=== PATIENT | female | born 1950 | race Caucasian/White ===

== ENCOUNTER → 2016-10-11 | Outpatient (CLI) | payer OTHER ==
[~2016-10-11] MED LIST: ALPRAZOLAM 0.50.5 M1 PO; CLONAZEPAM PO; COUMADIN 3 MG TA3 M1 PO; CYMBALTA PO; CYMBALTA60 MG PO; DILAUDID2 MG PO; ENOXAPARIN100 MG/11 SUBQ; FLEXERIL PO; MULTI-DELYN5 ML PO; NEURONTIN600 MG PO; NORCO 5-325 TA1 EACH PO; ONDANSETRON HCL4 M2 PO; OXYCODONE HCL 55 MG PO; OXYCODONE HCL20 M1 PO; OXYCODONE20 MG/1 ML PO; OXYCONTIN10 M1 PO; PRILOSEC20 MG PO; SINGULAIR 10 MG10 M1 PO; SKELAXIN 800 M800 M1 PO; UNICOMPLEX M TA1 TA1 PO
[2016-10-11 13:57] LABS: HEMATOCRIT 42.2 % (37.0-47.0); HEMOGLOBIN 13.4 gm/dL (12.0-15.0); MCH 24.5 pg (26.0-34.0); MCHC 31.8 g/dL (28.0-37.0); MCV 76.9 fL (80.0-100.0); RBC 5.48 mil/uL (4.20-5.00); RDW 18.2 % (10.5-14.5)
[2016-10-11 14:03] LABS: CALCIUM 8.8 mg/dL (8.5-10.1); CREATININE 0.8 mg/dL (0.6-1.0); POTASSIUM 3.9 mmol/L (3.5-5.1)
== END ==
LOC: CAT 12:21
PROVIDERS: Family Medicine
DX: K44.9 Diaphragmatic hernia without obstruction or gangrene (principal); R10.11 Right upper quadrant pain

== ENCOUNTER 2017-06-08 14:43 | Emergency (ER) | payer OTHER ==
[~2017-06-08] VITALS: Ht 167.6 cm; Wt 108.9 kg
[2017-06-08] MEDS ORDERED: DOXYCYCLINE 10100 MG PO (15:56)
[2017-06-08] MEDS ORDERED: TESSALON PERLE100 MG PO (15:56)
[2017-06-08] MEDS ORDERED: VENTOLIN HFA 1818 GM INH (16:01)
== END 2017-06-08 16:42 | disposition home or self-care (01) ==
LOC: ER 14:43
DX: J18.8 Other pneumonia, unspecified organism (principal); J98.01 Acute bronchospasm; J06.9 Acute upper respiratory infection, unspecified; Z90.49 Acquired absence of other specified parts of digestive tract; Z98.890 Other specified postprocedural states; Z86.14 Personal history of Methicillin resistant Staphylococcus aureus infection; Z91.041 Radiographic dye allergy status

== ENCOUNTER → 2017-09-02 | Outpatient (CLI) | payer OTHER ==
[~2017-09-02] MED LIST changes: +AZITHROMYCIN 2250 MG PO; +DOXYCYCLINE 10100 MG PO; +OXYCODONE HCL15 MG PO; +PREDNISONE 10 M10 MG PO; +PROZAC20 MG PO; +SYMBICORT160 MCG/4. INH; +TESSALON PERLE100 MG PO; +VENTOLIN HFA 1818 GM INH
== END ==
LOC: RAD 09:32
DX: J98.4 Other disorders of lung (principal); I70.90 Unspecified atherosclerosis; K44.9 Diaphragmatic hernia without obstruction or gangrene

== ENCOUNTER → 2017-09-10 | Outpatient (CLI) | payer OTHER ==
[~2017-09-10] MED LIST changes: -AZITHROMYCIN 2250 MG PO; -OXYCODONE HCL15 MG PO; -PREDNISONE 10 M10 MG PO; -PROZAC20 MG PO; -SYMBICORT160 MCG/4. INH
== END ==
LOC: ULTRA 07:41
DX: K76.0 Fatty (change of) liver, not elsewhere classified (principal)

== ENCOUNTER 2017-10-18 12:19 | Inpatient (IN) | payer OTHER ==
[~2017-10-18] VITALS: Ht 165.1 cm; Wt 108.9 kg
--- NOTE | ~2017-10-18 | EKG ---
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 : 1950 Requested By: Joby Hawk Order Number: [id number] MD: Yusuf Elias Measurements Intervals [place] Rate: 87 P: 27 SD: 143 QRS: -8 QRSD: 89 T: 22 QT: 348 QTc: 419 Interpretive Statements Sinus rhythm Probable left atrial enlargement Probable left ventricular hypertrophy Baseline wander in lead(s) V1 Compared to ECG 01/10/2015 07:49:19 No significant changes Electronically Signed On 10-19-2017 7:31:34 CDT by Yusuf Elias [email or web address] <ELECTRONICALLY SIGNED> By: Yusuf Elias MD 10/19/17 0731 1302 1302 Yusuf Elias MD /DSAHA
--- NOTE | ~2017-10-18 | 2DMMODE ---
[facility] [address] [place] [address] 2 D/M-MODE ECHOCARDIOGRAM Name: DOMENIC MORA Room #: 458-P [facility] IN M.R.#: [id number] Admission: 10/18/17 Attend Phys: Eliu Moore, Discharge: Date of : 52 Date of Service: 10/20/17 1348 Report #: [id number] THIS REPORT FOR: //name// APPROVED REPORT Study performed: 10/20/2017 12:47:40 EXAM: Comprehensive 2D, Doppler, and color-flow Echocardiogram Patient Location: Echo lab Room #: [facility] Status: routine BSA: 2.14 HR: 83 bpm BP: 111/65 mmHg Rhythm: NSR Other Information Study Quality: Adequate Indications Pneumonia, cough. 2D Dimensions RVDd: 39.24 mm LVEF(%): 48.01 (>50%) IVSd: 9.84 (7-11mm) LVOT Diam: 20.08 (18-24mm) LVDd: 49.44 mm PWd: 9.09 (7-11mm) Ascending Ao: 39.69 (22-36mm) LVDs: 37.47 (25-40mm) Aortic Root: 33.03 mm Escobar's LVEF: 48.01 % Volumes Left Atrial Volume (Systole) Single Plane 4CH: 68.31 mL Single Plane 2CH: 74.70 mL LA ESV Index: 36.00 mL/m2 Aortic Valve AoV Peak Darwin.: 1.62 m/s AO Peak Gr.: 10.44 mmHg LVOT Max P.41 mmHg LVOT Max V: 1.05 m/s MARY Vmax: 2.06 cm2 Mitral Valve E/A Ratio: 0.8 MV Decel. Time: 146.91 ms [facility] [place] [address] 2 D/M-MODE ECHOCARDIOGRAM Name: DOMENIC MORA Room #: 458-P [facility] IN .R.#: [id number] Admission: 10/18/17 Attend Phys: Eliu Moore, Discharge: Date of : 52 Date of Service: 10/20/17 1348 Report #: [id number] E Max Darwin.: 0.88 m/s MV A Darwin.: 1.07 m/s MV PHT: 42.60 ms IVRT: 79.58 ms Pulmonary Valve PV Peak Darwin.: 0.92 m/s PV Peak Gr.: 3.41 mmHg Pulmonary Vein P Vein S: 0.70 m/s P Vein A: 0.31 m/s P Vein D: 0.46 m/s P Vein A Dur.: 103.8 msec P Vein S/D Ratio: 1.52 Tricuspid Valve TR Peak Darwin.: 2.48 m/s RAP Estimate: 5.00 mmHg TR Peak Gr.: 24.52 mmHg PA Pressure: 30.00 mmHg Left Ventricle The left ventricle is normal size. There is normal LV segmental wall motion. There is normal left ventricular wall thickness. Left ventricular systolic function is normal. LVEF is 50-55%. Mild diastolic dysfunction is present (impaired relaxation pattern). Right Ventricle The right ventricle is normal size. The right ventricular systolic function is normal. Atria Left atrium is mildly dilated. Right atrium is at the upper limits of normal. Aortic Valve Aortic valve is trileaflet. No aortic regurgitation is present. There is no aortic valvular stenosis. Mitral Valve The mitral valve is normal in structure. Mild mitral regurgitation. Tricuspid Valve The tricuspid valve is normal in structure. Mild tricuspid regurgitation. Estimated PAP is 30mmHg. Pulmonic Valve [address] [address] 2 D/M-MODE ECHOCARDIOGRAM Name: DOMENIC MORA Room #: 458-P [facility] IN [facility]#: [id number] Admission: 10/18/17 Attend Phys: Eliu Moore, Discharge: Date of : 52 Date of Service: 10/20/17 1348 Report #: [id number] The pulmonary valve is normal in structure. Trace pulmonic regurgitation. Great Vessels The aortic root is normal in size. The ascending aorta is mildly dilated at 4.0cm. IVC is normal in size and collapses >50% with inspiration. Pericardium There is no pericardial effusion. <Conclusion> The left ventricle is normal size. There is normal left ventricular wall thickness. Left ventricular systolic function is normal. Mild diastolic dysfunction is present (impaired relaxation pattern). The right ventricle is normal size. Left atrium is mildly dilated. Aortic valve is trileaflet. Mild mitral regurgitation. Mild tricuspid regurgitation. Estimated PAP is 30mmHg. The ascending aorta is mildly dilated at 4.0cm. <ELECTRONICALLY SIGNED> By: Yusuf Elias MD 10/20/17 1348 1348 1348 Yusuf Elias MD /INF
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
[2017-10-18 12:53] VITALS: BP 109/76
[2017-10-18 13:32] LABS: ABSOLUTE NEUTROPHILS 9.1 thou/uL (1.4-8.2); BASOPHILS 0.3 % (0.0-2.0); EOSINOPHILS 0.2 % (0.0-3.0); HEMATOCRIT 35.7 % (37.0-47.0); HEMOGLOBIN 11.6 gm/dL (12.0-15.0); MCHC 32.6 g/dL (28.0-37.0); MCV 82.9 fL (80.0-100.0); PLATELET COUNT 265 thou/uL (150-400); POLYS 83.5 % (36.0-66.0); RBC 4.31 mil/uL (4.20-5.00); RDW 17.4 % (10.5-14.5); WBC 10.9 thou/uL (4.0-11.0)
[2017-10-18 13:39] LABS: ANION GAP 1 mmol/L (7-16); BUN 27 mg/dL (7-18); CALCIUM 9.3 mg/dL (8.5-10.1); CHLORIDE 106 mmol/L (98-107); CO2 30 mmol/L (21-32); CREATININE 0.8 mg/dL (0.6-1.0); GLUCOSE 147 mg/dL (74-106); POTASSIUM 3.9 mmol/L (3.5-5.1); SODIUM 137 mmol/L (136-145)
[2017-10-18 13:46] LABS: INR 2.7; PROTIME 27.2 Seconds (9.3-11.4)
[2017-10-18 13:48] LABS: ALBUMIN 2.8 g/dL (3.4-5.0); SGOT 20 U/L (15-37); SGPT 18 U/L (30-65); TOTAL PROTEIN 7.1 g/dL (6.4-8.2); TROPONIN-I < 0.04 ng/mL (<0.06)
[2017-10-18 14:00] VITALS: BP 109/76
[2017-10-18 14:22] VITALS: BP 133/82
[2017-10-18 14:30] VITALS: BP 118/71
[2017-10-18] MEDS ORDERED: OXYCODONE HCL15 MG PO (15:26)
[2017-10-18 19:36] VITALS: BP 135/68
[2017-10-19 00:45] VITALS: BP 116/78
[2017-10-19 04:45] VITALS: BP 135/82
[2017-10-19 05:44] LABS: ABSOLUTE NEUTROPHILS 10.2 thou/uL (1.4-8.2); BASOPHILS 0.1 % (0.0-2.0); HEMATOCRIT 34.3 % (37.0-47.0); HEMOGLOBIN 11.1 gm/dL (12.0-15.0); LYMPHOCYTES 6.8 % (24.0-44.0); MCH 26.9 pg (26.0-34.0); MCHC 32.4 g/dL (28.0-37.0); MCV 82.9 fL (80.0-100.0); MONOCYTES 3.6 % (1.0-8.0); PLATELET COUNT 276 thou/uL (150-400); POLYS 89.5 % (36.0-66.0); RBC 4.14 mil/uL (4.20-5.00); RDW 17.5 % (10.5-14.5); WBC 11.4 thou/uL (4.0-11.0)
[2017-10-19 06:04] LABS: CALCIUM 9.3 mg/dL (8.5-10.1); CREATININE 0.8 mg/dL (0.6-1.0); MAGNESIUM 2.2 mg/dL (1.8-2.4); POTASSIUM 4.2 mmol/L (3.5-5.1)
[2017-10-19 08:00] VITALS: BP 132/63
[2017-10-19 12:12] LABS: INR 2.8; PROTIME 28.5 Seconds (9.3-11.4)
[2017-10-19 16:00] VITALS: BP 116/63
[2017-10-19 20:47] VITALS: BP 115/63
[2017-10-19] MEDS ORDERED: PROZAC20 MG PO (22:15)
[2017-10-20 04:38] VITALS: BP 137/67
[2017-10-20 08:19] VITALS: BP 111/65
[2017-10-20 16:20] VITALS: BP 132/80
[2017-10-20 20:00] VITALS: BP 124/74
[2017-10-21 04:19] VITALS: BP 149/84
[2017-10-21 08:21] VITALS: BP 134/79
[2017-10-21 16:18] VITALS: BP 97/67
[2017-10-21 21:05] VITALS: BP 114/61
[2017-10-22 07:20] VITALS: BP 121/71
[2017-10-22 09:17] LABS: PROTIME 115.3 Seconds (9.3-11.4)
[2017-10-22 09:23] LABS: INR 11.8
[2017-10-22 20:00] VITALS: BP 106/64
[2017-10-23 07:15] VITALS: BP 116/71
[2017-10-23 10:01] LABS: INR 1.3
[2017-10-23 14:29] LABS: HEMATOCRIT 34.2 % (37.0-47.0); MCH 26.8 pg (26.0-34.0); MCHC 32.3 g/dL (28.0-37.0); MCV 82.9 fL (80.0-100.0); RBC 4.12 mil/uL (4.20-5.00); RDW 17.6 % (10.5-14.5); WBC 10.5 thou/uL (4.0-11.0)
[2017-10-23 14:37] LABS: CALCIUM 8.4 mg/dL (8.5-10.1); CREATININE 0.8 mg/dL (0.6-1.0); POTASSIUM 4.3 mmol/L (3.5-5.1)
[2017-10-23 20:04] VITALS: BP 122/71
[2017-10-24 07:30] VITALS: BP 128/78
[2017-10-24 08:47] LABS: CALCIUM 8.6 mg/dL (8.5-10.1); CREATININE 0.6 mg/dL (0.6-1.0); POTASSIUM 4.9 mmol/L (3.5-5.1)
[2017-10-24 08:52] LABS: INR 1.5
[2017-10-24 19:35] VITALS: BP 96/47
[2017-10-24 22:30] VITALS: BP 94/54
[2017-10-25 08:00] VITALS: BP 111/66
[2017-10-25] MEDS ORDERED: PREDNISONE 10 M10 MG PO (11:32)
[2017-10-25] MEDS ORDERED: AZITHROMYCIN 2250 MG PO (11:33)
[2017-10-25] MEDS ORDERED: SYMBICORT160 MCG/4. INH (11:35)
[2017-10-25] MEDS ORDERED: VENTOLIN HFA 1818 GM INH (11:35)
[2017-10-25 19:46] VITALS: BP 108/62
[2017-10-26 07:22] LABS: ABSOLUTE NEUTROPHILS 7.5 thou/uL (1.4-8.2); BASOPHILS 0.5 % (0.0-2.0); HEMATOCRIT 32.3 % (37.0-47.0); HEMOGLOBIN 10.4 gm/dL (12.0-15.0); MCH 26.3 pg (26.0-34.0); MCHC 32.1 g/dL (28.0-37.0); MONOCYTES 6.6 % (1.0-8.0); POLYS 69.9 % (36.0-66.0); RBC 3.94 mil/uL (4.20-5.00); RDW 17.3 % (10.5-14.5); WBC 10.7 thou/uL (4.0-11.0)
[2017-10-26 07:25] LABS: PLATELET COUNT 367 thou/uL (150-400)
[2017-10-26 07:32] LABS: CALCIUM 8.7 mg/dL (8.5-10.1); CREATININE 0.9 mg/dL (0.6-1.0); POTASSIUM 4.1 mmol/L (3.5-5.1)
[2017-10-26 12:25] VITALS: BP 106/59
[2017-10-26 20:00] VITALS: BP 106/64
[2017-10-27 07:30] VITALS: BP 130/81
[2017-10-27 07:32] LABS: ABSOLUTE NEUTROPHILS 7.6 thou/uL (1.4-8.2); EOSINOPHILS 2.3 % (0.0-3.0); HEMATOCRIT 32.2 % (37.0-47.0); HEMOGLOBIN 10.3 gm/dL (12.0-15.0); LYMPHOCYTES 19.5 % (24.0-44.0); MCH 26.3 pg (26.0-34.0); MCHC 31.9 g/dL (28.0-37.0); MCV 82.5 fL (80.0-100.0); MONOCYTES 7.8 % (1.0-8.0); PLATELET COUNT 355 thou/uL (150-400); POLYS 69.4 % (36.0-66.0); RDW 17.7 % (10.5-14.5)
[2017-10-27 07:46] LABS: PROTIME 24.9 Seconds (9.3-11.4)
[2017-10-27 07:47] LABS: INR 2.5
[2017-10-27 07:50] LABS: CALCIUM 8.7 mg/dL (8.5-10.1); CREATININE 0.9 mg/dL (0.6-1.0)
[2017-10-27 09:58] VITALS: BP 130/81
[2017-10-27 13:44] VITALS: BP 130/81
[2017-10-27 18:06] VITALS: BP 130/81
== END 2017-10-27 18:46 | disposition home health service (06) | DRG 177 ==
LOC: ER 12:19 → 4W 13:46 → EROBS 13:46 → 4W 14:23 → SICU 10-21 20:40
PROVIDERS: Emergency Medicine; Family Medicine; Internal Medicine
DX: J15.6 Pneumonia due to other Gram-negative bacteria (principal); J96.00 Acute respiratory failure, unspecified whether with hypoxia or hypercapnia; G89.29 Other chronic pain; R73.9 Hyperglycemia, unspecified; J45.909 Unspecified asthma, uncomplicated; M54.2 Cervicalgia; K21.9 Gastro-esophageal reflux disease without esophagitis; T38.0X5A Adverse effect of glucocorticoids and synthetic analogues, initial encounter; Y92.89 Other specified places as the place of occurrence of the external cause; Z90.49 Acquired absence of other specified parts of digestive tract; Z94.7 Corneal transplant status; Z86.711 Personal history of pulmonary embolism; Z87.81 Personal history of (healed) traumatic fracture; Z87.828 Personal history of other (healed) physical injury and trauma; Z79.01 Long term (current) use of anticoagulants; Z79.899 Other long term (current) drug therapy; Z91.041 Radiographic dye allergy status
CPT/HCPCS: 10045; 15002

== ENCOUNTER 2018-06-06 11:46 | Inpatient (IN) | payer OTHER ==
[~2018-06-06] VITALS: Ht 165.1 cm; Wt 108.0 kg
[~2018-06-06 11:46] MED LIST changes: +AZITHROMYCIN 2250 MG PO; +OXYCODONE HCL15 MG PO; +PREDNISONE 10 M10 MG PO; +PROZAC20 MG PO; +SYMBICORT160 MCG/4. INH
[2018-06-06 12:10] VITALS: BP 106/64
[2018-06-06 13:39] LABS: HEMATOCRIT 40.1 % (37.0-47.0); HEMOGLOBIN 12.5 gm/dL (12.0-15.0); MCH 25.2 pg (26.0-34.0); MCHC 31.2 g/dL (28.0-37.0); MCV 80.8 fL (80.0-100.0); PLATELET COUNT 293 thou/uL (150-400); RBC 4.96 mil/uL (4.20-5.00); WBC 20.5 thou/uL (4.0-11.0)
[2018-06-06 13:43] LABS: ANION GAP 12 mmol/L (7-16); BUN 46 mg/dL (7-18); CHLORIDE 102 mmol/L (98-107); CO2 25 mmol/L (21-32); CREATININE 2.9 mg/dL (0.6-1.0); GLUCOSE 162 mg/dL (74-106); POTASSIUM 4.2 mmol/L (3.5-5.1); SODIUM 139 mmol/L (136-145)
[2018-06-06 13:51] LABS: ALBUMIN 3.5 g/dL (3.4-5.0); SGOT 170 U/L (15-37); SGPT 59 U/L (30-65); TOTAL BILIRUBIN 0.6 mg/dL (<0.1-1.0); TOTAL PROTEIN 8.3 g/dL (6.4-8.2); TROPONIN-I <0.06 ng/mL (<0.06)
[2018-06-06 14:08] LABS: ABSOLUTE NEUTROPHILS 18.7 thou/uL (1.4-8.2); ANISOCYTOSIS 1+; POLYCHROMASIA OCCASIONAL
[2018-06-06 15:19] VITALS: BP 119/70
[2018-06-06 16:37] VITALS: BP 130/86
[2018-06-06] MEDS ORDERED: CLONAZEPAM 1 MG1 M1 PO (16:43)
[2018-06-06] MEDS ORDERED: BACLOFEN 10MG T10 MG PO (16:47)
[2018-06-06] MEDS ORDERED: BUSPIRONE HCL10 MG PO (16:59)
[2018-06-06 17:42] VITALS: BP 95/77
[2018-06-06 18:16] VITALS: BP 107/67
[2018-06-06 19:32] VITALS: BP 107/61
[2018-06-07 07:48] VITALS: BP 124/64
[2018-06-07 10:09] LABS: MCH 25.3 pg (26.0-34.0); MCHC 31.5 g/dL (28.0-37.0); MCV 80.5 fL (80.0-100.0); RBC 4.35 mil/uL (4.20-5.00); WBC 15.9 thou/uL (4.0-11.0)
[2018-06-07 10:21] LABS: INR 3.6
[2018-06-07 10:22] LABS: ALBUMIN 2.9 g/dL (3.4-5.0); CALCIUM 8.6 mg/dL (8.5-10.1); POTASSIUM 4.1 mmol/L (3.5-5.1); TOTAL BILIRUBIN 0.9 mg/dL (<0.1-1.0); TOTAL PROTEIN 7.4 g/dL (6.4-8.2)
[2018-06-07 10:26] LABS: CREATININE 1.2 mg/dL (0.6-1.0)
[2018-06-07 15:53] VITALS: BP 122/57
[2018-06-07 19:09] VITALS: BP 120/67
[2018-06-08 04:00] VITALS: BP 131/79
[2018-06-08 05:39] LABS: INR 2.9; PROTIME 29.6 Seconds (9.3-11.4)
[2018-06-08 07:14] LABS: HEMOGLOBIN 9.7 gm/dL (12.0-15.0); MCH 25.3 pg (26.0-34.0); MCHC 31.5 g/dL (28.0-37.0); MCV 80.3 fL (80.0-100.0); RBC 3.86 mil/uL (4.20-5.00); RDW 17.9 % (10.5-14.5); WBC 11.8 thou/uL (4.0-11.0)
[2018-06-08 07:25] VITALS: BP 120/75
[2018-06-08 07:25] LABS: ALBUMIN 2.5 g/dL (3.4-5.0); CALCIUM 8.6 mg/dL (8.5-10.1); CREATININE 0.8 mg/dL (0.6-1.0); POTASSIUM 4.5 mmol/L (3.5-5.1); TOTAL BILIRUBIN 0.8 mg/dL (<0.1-1.0); TOTAL PROTEIN 6.8 g/dL (6.4-8.2)
--- NOTE | 2018-06-08 11:05 | EKG ---
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[place] : 1950 Requested By: Araceli Gillis Order Number: [id number] MD: Ruiz Gee Measurements Intervals [place] Rate: 100 P: 43 CT: 156 QRS: -18 QRSD: 82 T: -1 QT: 346 QTc: 447 Interpretive Statements Sinus tachycardia Left atrial enlargement Borderline left axis deviation Borderline repolarization abnormality Compared to ECG 10/18/2017 13:02:02 Sinus rhythm no longer present Electronically Signed On 06-08-2018 11:05:32 CONVEYOR FEEDER OFFBEARER by Ruiz Gee [email or web address] <ELECTRONICALLY SIGNED> By: Ruiz Gee MD 06/08/18 1105 11 11 Ruiz Gee MD /EPI
[2018-06-08 11:52] VITALS: BP 101/58
[2018-06-08 20:21] VITALS: BP 113/65
[2018-06-09 03:19] VITALS: BP 128/84
[2018-06-09 08:49] VITALS: BP 115/70
[2018-06-09 10:16] LABS: INR 2.2
[2018-06-09 16:32] VITALS: BP 119/66
[2018-06-09 19:09] VITALS: BP 120/65
[2018-06-10 03:44] VITALS: BP 139/80
[2018-06-10 08:03] VITALS: BP 113/63
[2018-06-10 20:26] VITALS: BP 123/53
[2018-06-11 05:28] VITALS: BP 124/85
[2018-06-11 08:49] VITALS: BP 141/83
[2018-06-11 09:32] LABS: HEMATOCRIT 31.4 % (37.0-47.0); HEMOGLOBIN 10.3 gm/dL (12.0-15.0); MCH 26.5 pg (26.0-34.0); MCHC 32.7 g/dL (28.0-37.0); MCV 81.1 fL (80.0-100.0); RBC 3.88 mil/uL (4.20-5.00); WBC 7.1 thou/uL (4.0-11.0)
[2018-06-11 09:46] LABS: ALBUMIN 2.6 g/dL (3.4-5.0); CALCIUM 8.8 mg/dL (8.5-10.1); CREATININE 0.8 mg/dL (0.6-1.0); POTASSIUM 3.6 mmol/L (3.5-5.1); TOTAL BILIRUBIN 0.4 mg/dL (<0.1-1.0)
[2018-06-11 17:15] VITALS: BP 137/76
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
[2018-06-11 19:50] VITALS: BP 120/75
[2018-06-12 04:20] VITALS: BP 120/72
[2018-06-12 07:30] VITALS: BP 134/87
[2018-06-12 11:11] LABS: ANA INTERPRETATION Negative (Negative)
[2018-06-12 21:39] VITALS: BP 132/67
[2018-06-13 04:37] LABS: INR 2.2; PROTIME 22.7 Seconds (9.3-11.4)
[2018-06-13 05:04] VITALS: BP 127/77
[2018-06-13 08:09] VITALS: BP 109/43
[2018-06-13 08:43] VITALS: BP 124/74
[2018-06-13 10:45] LABS: HEMATOCRIT 31.5 % (37.0-47.0); HEMOGLOBIN 9.7 gm/dL (12.0-15.0); MCH 24.8 pg (26.0-34.0); MCHC 30.8 g/dL (28.0-37.0); MCV 80.5 fL (80.0-100.0); RBC 3.91 mil/uL (4.20-5.00); RDW 18.1 % (10.5-14.5); WBC 7.7 thou/uL (4.0-11.0)
[2018-06-13 11:09] LABS: ALBUMIN 2.5 g/dL (3.4-5.0); CALCIUM 8.8 mg/dL (8.5-10.1); CREATININE 0.9 mg/dL (0.6-1.0); POTASSIUM 3.5 mmol/L (3.5-5.1); TOTAL BILIRUBIN 0.4 mg/dL (<0.1-1.0); TOTAL PROTEIN 7.1 g/dL (6.4-8.2)
[2018-06-13 16:13] VITALS: BP 115/62
[2018-06-14 02:49] VITALS: BP 124/78
[2018-06-14 07:35] VITALS: BP 133/78
[2018-06-14 15:04] VITALS: BP 118/65
[2018-06-14 19:24] VITALS: BP 126/61
[2018-06-15 05:16] VITALS: BP 126/72
[2018-06-15 07:47] VITALS: BP 117/64
[2018-06-15] MEDS ORDERED: FIRVANQ50 MG/1 ML PO (07:56)
[2018-06-15] MEDS ORDERED: PREDNISONE 10 M10 MG PO (07:58)
[2018-06-15] MEDS ORDERED: AUGMENTIN 875-1 EACH PO (07:58)
[2018-06-15] MEDS ORDERED: ROBITUSSIN100 MG/53 PO (08:00)
[2018-06-15 08:05] VITALS: BP 117/64
== END 2018-06-15 09:57 | disposition home or self-care (01) | DRG 871 ==
LOC: ER 11:46 → 4W 15:01 → EROBS 15:01 → 4W 16:45 → ENTRNSPT 06-15 09:54 → 4W 06-15 09:57 → CMPTRNSPT 06-15 10:01
PROVIDERS: Internal Medicine Pulmonary Disease; Student in an Organized Health Care Education/Training Program; ADMIT Family Medicine
DX: A41.9 Sepsis, unspecified organism (principal); J18.1 Lobar pneumonia, unspecified organism; N17.9 Acute kidney failure, unspecified; A04.72 Enterocolitis due to Clostridium difficile, not specified as recurrent; J44.0 Chronic obstructive pulmonary disease with (acute) lower respiratory infection; F32.9 Major depressive disorder, single episode, unspecified; K44.9 Diaphragmatic hernia without obstruction or gangrene; M54.2 Cervicalgia; G89.4 Chronic pain syndrome; D63.8 Anemia in other chronic diseases classified elsewhere; K21.9 Gastro-esophageal reflux disease without esophagitis; Z87.01 Personal history of pneumonia (recurrent); Z86.711 Personal history of pulmonary embolism; Z90.49 Acquired absence of other specified parts of digestive tract; Z94.7 Corneal transplant status; Z79.899 Other long term (current) drug therapy; Z91.041 Radiographic dye allergy status
CPT/HCPCS: 10045

== ENCOUNTER → 2018-07-03 | Outpatient (CLI) | payer OTHER ==
[~2018-07-03] MED LIST changes: +AUGMENTIN 875-1 EACH PO; +BACLOFEN 10MG T10 MG PO; +BUSPIRONE HCL10 MG PO; +CLONAZEPAM 1 MG1 M1 PO; +FIRVANQ50 MG/1 ML PO; +ROBITUSSIN100 MG/53 PO
== END ==
LOC: RAD 09:46
DX: J18.9 Pneumonia, unspecified organism (principal); K44.9 Diaphragmatic hernia without obstruction or gangrene

== ENCOUNTER 2018-07-29 19:03 | Inpatient (IN) | payer OTHER ==
[~2018-07-29] VITALS: Ht 165.1 cm; Wt 115.7 kg
[2018-07-29 19:08] VITALS: BP 104/65
[2018-07-29 19:56] LABS: ABSOLUTE NEUTROPHILS 14.9 thou/uL (1.4-8.2); BASOPHILS 0.4 % (0.0-2.0); EOSINOPHILS 0.1 % (0.0-3.0); HEMATOCRIT 33.3 % (37.0-47.0); HEMOGLOBIN 10.6 gm/dL (12.0-15.0); LYMPHOCYTES 4.4 % (24.0-44.0); MCH 23.9 pg (26.0-34.0); MCHC 31.7 g/dL (28.0-37.0); MCV 75.4 fL (80.0-100.0); MONOCYTES 4.5 % (1.0-8.0); PLATELET COUNT 478 thou/uL (150-400); POLYS 90.6 % (36.0-66.0); RBC 4.42 mil/uL (4.20-5.00); RDW 17.7 % (10.5-14.5); WBC 16.5 thou/uL (4.0-11.0)
[2018-07-29 19:58] LABS: ANION GAP 15 mmol/L (7-16); BUN 48 mg/dL (7-18); CALCIUM 9.5 mg/dL (8.5-10.1); CHLORIDE 103 mmol/L (98-107); CO2 18 mmol/L (21-32); CREATININE 2.4 mg/dL (0.6-1.0); GLUCOSE 169 mg/dL (74-106); SODIUM 136 mmol/L (136-145)
[2018-07-29 20:08] LABS: ALBUMIN 3.8 g/dL (3.4-5.0); SGOT 41 U/L (15-37); SGPT 27 U/L (30-65); TOTAL BILIRUBIN 0.5 mg/dL (<0.1-1.0); TOTAL PROTEIN 8.5 g/dL (6.4-8.2); TROPONIN-I <0.06 ng/mL (<0.06)
[2018-07-29 20:25] LABS: BE(vivo) -6.8 mmol/L (-2 to +3); HCO3 19.3 mmol/L (22.0-26.0); PCO2 40.6 mmHg (35.0-45.0); PO2 81.6 mmHg (80.0-100.0); sO2 94.9 % (92.0-98.0)
[2018-07-29 20:26] LABS: pH 7.294 (7.360-7.450)
[2018-07-29 21:25] VITALS: BP 141/79
[2018-07-29 22:28] VITALS: BP 103/88
[2018-07-30 04:41] VITALS: BP 113/69
--- NOTE | 2018-07-30 05:55 | NUR ---
ASSUME CARE 2200. PT/VITALS STABLE. INTERMITTENT CHRONIC NECK PAIN. PT UP AD NGA TO BATHROOM. ASSESSMWENT CHARTED. PROGRESSING WITH POC. DR LAZCANO TO SEE PT TO AND WILL FOLLOW WITH POC PER MD. WILL CONTINUE TO MONITOR.
[2018-07-30 07:50] VITALS: BP 97/59
[2018-07-30 09:30] VITALS: BP 112/42
[2018-07-30 12:00] VITALS: BP 133/43
[2018-07-30] MEDS ORDERED: CLOTRIMAZOLE 1%15 G1 TOP (12:47)
[2018-07-30 15:50] VITALS: BP 115/62
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
[2018-07-30 19:32] VITALS: BP 114/69
[2018-07-31 04:48] VITALS: BP 114/71
[2018-07-31 05:53] LABS: ABSOLUTE NEUTROPHILS 7.6 thou/uL (1.4-8.2); BASOPHILS 0.7 % (0.0-2.0); EOSINOPHILS 3.8 % (0.0-3.0); HEMATOCRIT 30.4 % (37.0-47.0); HEMOGLOBIN 9.3 gm/dL (12.0-15.0); LYMPHOCYTES 12.3 % (24.0-44.0); MCH 23.4 pg (26.0-34.0); MCHC 30.6 g/dL (28.0-37.0); MCV 76.4 fL (80.0-100.0); POLYS 73.2 % (36.0-66.0); RBC 3.98 mil/uL (4.20-5.00); RDW 17.9 % (10.5-14.5); WBC 10.4 thou/uL (4.0-11.0)
[2018-07-31 06:03] LABS: PLATELET COUNT 364 thou/uL (150-400)
[2018-07-31 06:05] LABS: CALCIUM 8.7 mg/dL (8.5-10.1); POTASSIUM 4.1 mmol/L (3.5-5.1)
[2018-07-31 06:07] LABS: CREATININE 0.9 mg/dL (0.6-1.0)
--- NOTE | 2018-07-31 06:57 | NUR ---
ASSUMED CARE OF PATIENT AROUND 1900. PATIENT C/O PAIN, OXYCODONE ADMINISTERED PER AUG. PATIENT NPO AT MIDNIGHT, 0600 MEDICATIONS GIVEN TO PATIETN AROUND 0400 TO LIMIT N/V BEFORE ESPHOGRAM TODAY. PATIENT ABLE TO SLEEP MOST OF NIGHT. NO QUESTIONS AT THIS TIME. PROGRESSING TOWARD GOALS, WILL CONTINUE TO MONITOR.
[2018-07-31 07:35] VITALS: BP 126/77
[2018-07-31 11:40] VITALS: BP 128/62
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
--- NOTE | 2018-07-31 15:20 | NUR ---
PT ALERT AND ORIENTED TIMES THREE WITH PERIODS OF CONFUSION. VSS, 94%RA, SR ON TELE, IVF INFUSING PER ORDER. C/O LEFT SHOULDER PAIN HEATING PAD AND PRN PAIN MEDICATIONS GIVEN WITH SOME RELEIF. PT TOLERATES MEDS AND MEALS. PT UP TO RESTROOM WITH STANDBY ASSIST. PT SLOWLY PROGRESSING TOWARDS POC GOALS.
[2018-07-31 16:15] VITALS: BP 133/82
[2018-07-31 19:26] VITALS: BP 127/69
[2018-08-01 03:52] VITALS: BP 108/48
[2018-08-01 07:35] VITALS: BP 112/42
--- NOTE | 2018-08-01 07:58 | NUR ---
ASSUME CARE 1900. PT/VITALS STABLE. INTERMITTENT NECK PAIN. TOLERATES ACTIVITY WELL. UP AD NGA. MILD EPISODES OF CONDUSION NOTED LESA AFTER WAKING FROM SLEEP. PT EASILY REORIENTS SELF. PROGRESSING WELL WITH POC. PLAN IS TO CONTINUE WITH ABX AND BREATHING TREATMENTS AND POSSIBLE DISCHARGE WITHIN A FEW DAYS
[2018-08-01] MEDS ORDERED: FLAGYL500 M1 PO (08:51)
[2018-08-01 11:30] VITALS: BP 121/77
[2018-08-01 11:45] VITALS: BP 112/42
[2018-08-04 02:10] LABS: ADENOVIRUS Negative (Negative); INFLUENZA A Negative (Negative); INFLUENZA B Negative (Negative); METAPNEUMOVIRUS Negative (Negative); PARAINFLUENZA 1 Negative (Negative); PARAINFLUENZA 2 Negative (Negative); PARAINFLUENZA 3 Negative (Negative); RHINOVIRUS Negative (Negative); RSV A Negative (Negative); RSV B Negative (Negative)
== END 2018-08-01 14:44 | disposition home or self-care (01) | DRG 177 ==
LOC: ER 19:03 → 2N 20:29 → EROBS 20:29 → 2N 22:09
PROVIDERS: Emergency Medicine; Physician Assistant; Specialist; ADMIT Family Medicine
DX: J69.0 Pneumonitis due to inhalation of food and vomit (principal); J96.01 Acute respiratory failure with hypoxia; N17.9 Acute kidney failure, unspecified; A04.72 Enterocolitis due to Clostridium difficile, not specified as recurrent; K21.9 Gastro-esophageal reflux disease without esophagitis; M54.2 Cervicalgia; D64.9 Anemia, unspecified; K44.9 Diaphragmatic hernia without obstruction or gangrene; G89.4 Chronic pain syndrome; Z94.7 Corneal transplant status; Z90.49 Acquired absence of other specified parts of digestive tract; Z91.041 Radiographic dye allergy status; Z87.81 Personal history of (healed) traumatic fracture; Z86.711 Personal history of pulmonary embolism
CPT/HCPCS: 10081

== ENCOUNTER → 2018-08-21 | Outpatient (CLI) | payer OTHER ==
[~2018-08-21] MED LIST changes: +CLOTRIMAZOLE 1%15 G1 TOP; +FLAGYL500 M1 PO
== END ==
LOC: CAT 13:33
DX: I67.82 Cerebral ischemia (principal); G31.9 Degenerative disease of nervous system, unspecified; I70.90 Unspecified atherosclerosis; H57.02 Anisocoria

== ENCOUNTER → 2018-10-15 | Outpatient (CLI) | payer OTHER | LOC: RAD 09:20 | DX: J98.4 Other disorders of lung (principal) ==

== ENCOUNTER 2018-10-23 07:24 | Emergency (ER) | payer OTHER ==
[~2018-10-23] VITALS: Ht 165.1 cm; Wt 106.6 kg
[2018-10-23 09:05] LABS: HEMATOCRIT 30.5 % (37.0-47.0); HEMOGLOBIN 9.4 gm/dL (12.0-15.0); MCH 22.3 pg (26.0-34.0); MCHC 30.9 g/dL (28.0-37.0); MCV 72.2 fL (80.0-100.0); RBC 4.22 mil/uL (4.20-5.00); RDW 20.6 % (10.5-14.5); WBC 11.3 thou/uL (4.0-11.0)
[2018-10-23 09:14] LABS: INR 3.5; PROTIME 36.5 Seconds (9.3-11.4)
[2018-10-23 09:16] LABS: ANION GAP 5 mmol/L (7-16); BUN 20 mg/dL (7-18); CALCIUM 9.2 mg/dL (8.5-10.1); CHLORIDE 106 mmol/L (98-107); CO2 27 mmol/L (21-32); CREATININE 0.9 mg/dL (0.6-1.0); GLUCOSE 106 mg/dL (74-106); SODIUM 138 mmol/L (136-145)
[2018-10-23 09:21] LABS: POTASSIUM 5.2 mmol/L (3.5-5.1)
[2018-10-23 09:25] LABS: TROPONIN-I <0.06 ng/mL (<0.06)
[2018-10-23] MEDS ORDERED: CEFDINIR300 MG PO (10:00)
[2018-10-23] MEDS ORDERED: PREDNISONE50 MG PO (10:00)
[2018-10-23 10:58] VITALS: BP 131/62
--- NOTE | 2018-10-23 12:17 | EKG ---
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: [facility] : 1950 Requested By: Kenny Evans Order Number: [id number] MD: Octavio Chavez Measurements Intervals [place] Rate: 87 P: 45 [place]: 159 QRS: -5 QRSD: 83 T: 3 QT: 372 QTc: 448 Interpretive Statements Sinus rhythm Nonspecific ST segment abnormality Compared to ECG 06/06/2018 12:12:46 Sinus tachycardia no longer present Electronically Signed On 10-23-2018 12:17:14 CDT by Octavio Chavez [email or web address] ��������������������������������������������� <ELECTRONICALLY SIGNED> ���������������������������������������� By: Octavio Chavez MD, [facility] ��������������������������������������������� 10/23/18 1217 0833 2 Octavio Chavez MD, FACC /EPI
== END 2018-10-23 18:43 | disposition home or self-care (01) ==
LOC: ER 07:24
PROVIDERS: Emergency Medicine
DX: J18.8 Other pneumonia, unspecified organism (principal); L03.115 Cellulitis of right lower limb; K21.9 Gastro-esophageal reflux disease without esophagitis; G89.29 Other chronic pain; M54.2 Cervicalgia; Z86.14 Personal history of Methicillin resistant Staphylococcus aureus infection; Z90.49 Acquired absence of other specified parts of digestive tract; Z87.01 Personal history of pneumonia (recurrent); Z91.041 Radiographic dye allergy status

== ENCOUNTER 2019-02-25 08:32 | Inpatient (IN) | payer OTHER ==
[~2019-02-25] VITALS: Ht 165.1 cm; Wt 114.3 kg
[2019-02-25 08:32] VITALS: BP 105/69
[~2019-02-25 08:32] MED LIST changes: +CEFDINIR300 MG PO; +PREDNISONE50 MG PO; +PRILOSEC OTC20 MG PO; -PRILOSEC20 MG PO
--- NOTE | 2019-02-25 09:10 | EKG ---
[place] [address] [facility] [place] [address] ELECTROCARDIOGRAM REPORT Name: DOMENIC MORA Room #: [facility]#: [id number] ������������������ Admission: ������������������ Attend Phys: Discharge: ������������������ Date of : 52 Report #: [id number] ����������������������������������������������������������������� [id number] THIS REPORT FOR: //name// [facility] ED Test Date: 2019-02-25 Test Time: 08:42:02 Pat Name: DOMENIC MORA Department: Room: Gender: F Booth Operator: LAIMELCHOR : 1950 Requested By: Zeyad Coronel Order Number: [id number] MD: Octavio Chavez Measurements Intervals [place] Rate: 90 P: 10 AK: 146 QRS: -16 QRSD: 90 T: -7 QT: 361 QTc: 442 Interpretive Statements Sinus rhythm Nonspecific ST segment abnormality Compared to ECG 10/23/2018 08:33:42 No significant change was found Electronically Signed On 02-25-2019 9:09:54 CDT by Octavio Chavez [email or web address] ��������������������������������������������� <ELECTRONICALLY SIGNED> ���������������������������������������� By: Octavio Chavez MD, [facility] ��������������������������������������������� 02/25/1909 0842 0842 Octavio Chavez MD, [facility] /EPI
[2019-02-25 09:47] LABS: ABSOLUTE NEUTROPHILS 9.3 thou/uL (1.4-8.2); BASOPHILS 0.4 % (0.0-2.0); EOSINOPHILS 1.3 % (0.0-3.0); HEMATOCRIT 34.1 % (37.0-47.0); HEMOGLOBIN 10.5 gm/dL (12.0-15.0); LYMPHOCYTES 11.2 % (24.0-44.0); MCH 23.3 pg (26.0-34.0); MCHC 30.7 g/dL (28.0-37.0); MCV 75.7 fL (80.0-100.0); MONOCYTES 9.2 % (1.0-8.0); PLATELET COUNT 352 thou/uL (150-400); POLYS 77.9 % (36.0-66.0); RDW 18.9 % (10.5-14.5); WBC 11.9 thou/uL (4.0-11.0)
[2019-02-25 09:51] LABS: BE(vivo) -0.9 mmol/L (-2 to +3); HCO3 23.7 mmol/L (22.0-26.0); PCO2 38.9 mmHg (35.0-45.0); PO2 51.9 mmHg (80.0-100.0); pH 7.402 (7.360-7.450)
[2019-02-25 09:54] LABS: ANION GAP 9 mmol/L (7-16); BUN 23 mg/dL (7-18); CALCIUM 9.4 mg/dL (8.5-10.1); CHLORIDE 107 mmol/L (98-107); CO2 27 mmol/L (21-32); CREATININE 0.9 mg/dL (0.6-1.0); GLUCOSE 114 mg/dL (74-106); POTASSIUM 3.7 mmol/L (3.5-5.1); SODIUM 143 mmol/L (136-145)
[2019-02-25 09:56] LABS: INR 2.1
[2019-02-25 10:00] LABS: APTT 42.3 Seconds (24.5-32.8); PROTIME 22.1 Seconds (9.3-11.4)
[2019-02-25 10:03] LABS: ALBUMIN 3.3 g/dL (3.4-5.0); MAGNESIUM 2.1 mg/dL (1.8-2.4); SGOT 53 U/L (15-37); SGPT 25 U/L (30-65); TOTAL BILIRUBIN 0.9 mg/dL (<0.1-1.0); TOTAL PROTEIN 8.1 g/dL (6.4-8.2); TROPONIN-I <0.06 ng/mL (<0.06)
[2019-02-25 13:57] VITALS: BP 120/69
--- NOTE | 2019-02-25 14:14 | NUR ---
PT ORIENTED TO ROOM AND UNIT, BED LOW AND LOCKED, SIDE RAILS UPX3, CALL LIGHT IN REACH, TELE APPLIED. WILL CONTINUE TO ASSESS.
[2019-02-25 14:15] VITALS: BP 120/69
[2019-02-25 14:21] VITALS: BP 142/71
[2019-02-25 19:23] VITALS: BP 129/69
[2019-02-25] MEDS ORDERED: LASIX 40 MG TAB40 M2 PO (20:41)
[2019-02-25 23:25] VITALS: BP 107/62
[2019-02-26 03:34] VITALS: BP 114/74
[2019-02-26 05:58] LABS: CALCIUM 8.5 mg/dL (8.5-10.1); CREATININE 0.8 mg/dL (0.6-1.0)
[2019-02-26 05:59] LABS: POTASSIUM 4.7 mmol/L (3.5-5.1)
--- NOTE | 2019-02-26 07:39 | NUR ---
PATIENT IS ALERT AND ORIENTED. PATIENTS LBM WAS THE 12TH. PATIENT IS NSR ON TELE. PATIENT HAD A LOW TEMP TREATED WITH TYLENOL. PATIENT HAS CELLULITIS TO RLE. PATIENT IS 2L NC. PATIENTS PAIN IS CONTROLLED ON HOME DOSE FOR CHRONIC NECK PAIN. PATIENT IS RESTING COMFORTABLY IN BED. WCM.
[2019-02-26 08:10] VITALS: BP 112/69
--- NOTE | 2019-02-26 17:06 | NUR ---
Assumed care approx. 0700 this AM. Patient remains on 2LNC. Productive cough with thick yellow/white sputum. Edema noted in right and left feet/ankles. Fentanyl and Oxycodone given for consistent neck pain. Fluids infusing per orders. Patient making slight progress toward goals.
[2019-02-26 17:18] VITALS: BP 119/62
--- NOTE | 2019-02-27 02:02 | NUR ---
SHE HAS HAD A PRODUCTIVE COUGH TONIGHT, WHICH HAS BEEN GREENISH IN COLOR AND THICK. CONTINUES ON IV FLUIDS. SHE IS NEEDING HER PAIN MEDICATION OFTEN IT IS ORDERED. HER COUGH IS CAUSING INCREASED PAIN. CAREPLAN REVIEWED.
[2019-02-27 04:33] VITALS: BP 117/75
[2019-02-27 07:37] VITALS: BP 118/67
[2019-02-27 15:24] VITALS: BP 139/76
[2019-02-27 19:55] VITALS: BP 145/89
[2019-02-28 04:35] VITALS: BP 160/102
[2019-02-28 05:30] VITALS: BP 157/95
[2019-02-28 07:31] VITALS: BP 152/94
[2019-02-28 09:00] LABS: HEMATOCRIT 30.7 % (37.0-47.0); HEMOGLOBIN 9.3 gm/dL (12.0-15.0); MCH 23.4 pg (26.0-34.0); MCHC 30.3 g/dL (28.0-37.0); RBC 3.99 mil/uL (4.20-5.00); RDW 19.5 % (10.5-14.5); WBC 12.6 thou/uL (4.0-11.0)
[2019-02-28 09:12] LABS: CALCIUM 9.5 mg/dL (8.5-10.1); CREATININE 0.9 mg/dL (0.6-1.0); POTASSIUM 4.9 mmol/L (3.5-5.1); PROTIME 38.8 Seconds (9.3-11.4)
[2019-02-28 09:15] LABS: INR 3.7
[2019-02-28 15:21] VITALS: BP 112/65
--- NOTE | 2019-02-28 18:24 | NUR ---
pt is A&OX3, PT is contiuning IV ABT and o2 3L/min/nc, pt's cought has improved, pt's neck pain and N/V can control by medications, pt 's po warfarin is on hold, and pt has vitimin K 5mg sq today, pt does not have s/s of bleeding by this time, pt has slowly meeting care plan care goals.
[2019-02-28 19:38] VITALS: BP 144/93
[2019-03-01 04:33] VITALS: BP 129/87
--- NOTE | 2019-03-01 04:58 | NUR ---
Later entry for the cube cutter of 02/27/2019: Patient A&O *3, calm and pleasant; complained of neck pain and later together with abdomen pain, pain medication given and worked; Patient's IV was infiltrated, patient had one black and small volume of vomitting before the new IV was built and Zofran given; Doctor Oscar had been paged; Patient reported a second black vomitting but claimed that the vomitting was rushed away by herself, the staff educated the patient to keep vomitting and stool for the staff to check before rinsing it away; Dr. Moore was paged again, Dr. Moore gave order of One time Zofran and pronix, patient had one light black stool after that, no more vomitting. The stuff passed the concern of GI bleeding possibility to the day nurse. BP stable, patient denied dizziness or soa.
--- NOTE | 2019-03-01 05:18 | NUR ---
ASSUMED CARE AT 1900. PT HAS CONGESTED COUGH WITH THICK SPUTUM PRODUCTION, AND COARSE/CRACKLES IN LUNGS; GIVEN COUGH SYRUP ONCE AND COUGH DROP ONCE OVERNIGHT. REPORTS CHRONIC PAIN IN NECK, GIVEN IV PAIN MEDS x2 AND PO x1. REPORTED NAUSEA ONCE OVERNIGHT, GIVEN ZOFRAN. HAD DARK/TARRY, SOFT STOOL. NO SIGNS OF ACTIVE BLEEDING. PT CALLS FOR HELP APPROPRIATELY, NO FURTHER CONCERNS, WILL CONTINUE TO MONITOR.
[2019-03-01 07:07] VITALS: BP 138/85
[2019-03-01 08:53] LABS: HEMATOCRIT 28.1 % (37.0-47.0); HEMOGLOBIN 8.7 gm/dL (12.0-15.0); MCH 23.7 pg (26.0-34.0); MCHC 30.9 g/dL (28.0-37.0); MCV 76.8 fL (80.0-100.0); RBC 3.65 mil/uL (4.20-5.00); RDW 19.2 % (10.5-14.5); WBC 10.5 thou/uL (4.0-11.0)
[2019-03-01 09:03] LABS: INR 4.2
[2019-03-01 09:12] LABS: ALBUMIN 2.5 g/dL (3.4-5.0); CALCIUM 9.1 mg/dL (8.5-10.1); CREATININE 0.9 mg/dL (0.6-1.0); TOTAL BILIRUBIN 0.3 mg/dL (<0.1-1.0); TOTAL PROTEIN 6.7 g/dL (6.4-8.2)
--- NOTE | 2019-03-01 10:47 | NUR ---
ASSESSMENT: CM REVIEWED CHART AND MET WITH PATIENT AT THE BEDSIDE. PT IS ALERT AND ORIENTED X4. PT WAS ADMITTED WITH CAP/HYPOXIA. PT REPORTS SHE LIVES IN A HOUSE WITH A ROOMATE. PT REPORTS HAVING ONE STEP TO ENTER AND NO STEPS ONCE INSIDE. PT REPORTS SHE NORMALLY AMBULATES INDEPENDENTLY BUT DOES USE A CANE AT TIMES. PT REPORTS HAVING A SHOWER CHAIR BUT IS INDEPENDENT WITH ADLS. PT IS CURRENTLY ON 2L OXYGEN BUT DOES NOT WEAR IT AT HOME OR HAVE CPAP OR NEBULZIER. PT REPORTS HAVING HH IN THE PAST BUT UNSURE THE AGENCY. CM DISCUSSED ROLE. PT DOES NOT FEEL SHE WILL NEED HH AT DISCHARGE. CM WILL CONTINUE TO MONITOR OXYGEN NEEDS. PT EXPRESSED WANTING TO GET DPOA PAPERWORK NOTARZIED. CM IS NOT A NOTARY SO NOTIFIED BEDSIDE RN TO SEE IF SPIRITUAL CARE CAN COME NOTARZIE. CM WILL CONTINUE TO FOLLOW TO ASSIST NEEDED.
--- NOTE | 2019-03-01 15:02 | NUR ---
Nutrition: pt admit with asthma exacerbation. Seen due to BMI 41, extreme class 3 obesity. Pt on regular diet, eating 50-100% of meals. Able to order meals. Reports stable weight and does not desire education at this time. BG 157-201, no hx of DM but on steroids. Noted dose has been tapered so hopeful trends will improve. Could consider adding carb controlled to diet order if not. Low nutrition risk.
[2019-03-01 16:29] VITALS: BP 144/82
--- NOTE | 2019-03-01 19:00 | NUR ---
PT REPORTS 3 LOOSE STOOLS DARK...REPORTS SOME NAUSEA AROUND DINNER...
[2019-03-01 20:19] VITALS: BP 147/90
[2019-03-02 05:10] VITALS: BP 139/82
[2019-03-02 07:20] VITALS: BP 135/85
--- NOTE | 2019-03-02 08:01 | NUR ---
ASSUMED CARE AT 1900, ASSESSMENT COMPLETED. PT HAS FREQ HACKING COUGH, WITH MODERATE AMOUNT OF THICK SPUTUM. REPORTS FREQ NAUSEA OVERNIGHT, NO VOMITING NOTED; ALSO C/O NECK PAIN WORSENED WITH COUGHING. ASKED FOR FENTANYL AND ZOFRAN EVERY FOUR HOURS; ENCOURAGED PO PAIN MEDS BUT PT WAS RESISTANT TO TAKING UNTIL AT LEAST AN HOUR AFTER GETTING FENTANYL/ZOFRAN. SR ON TELE OVERNIGHT. NO OTHER CONCERNS, SHIFT REPORT GIVEN AT 0700.
[2019-03-02 09:00] LABS: PROTIME 24.4 Seconds (9.3-11.4)
[2019-03-02 09:07] LABS: INR 2.3
--- NOTE | 2019-03-02 12:30 | EKG ---
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: CEDRIC : 1950 Requested By: Eliu Moore Order Number: [id number] MD: Octavio Chavez Measurements Intervals [place] Rate: 81 P: 31 CA: 133 QRS: -9 QRSD: 91 T: 19 QT: 375 QTc: 436 Interpretive Statements Sinus rhythm Normal tracing Compared to ECG 02/25/2019 08:42:02 ST (T wave) deviation no longer present Electronically Signed On 03-02-2019 12:29:47 CDT by Octavio Chavez [email or web address] ��������������������������������������������� <ELECTRONICALLY SIGNED> ���������������������������������������� By: Octavio Chavez MD, [facility] ��������������������������������������������� 03/02/19 1229 0833 0833 Octavio Chavez MD, [facility] /EPI
[2019-03-02 13:06] LABS: % SATURATION 6 % (20-39); IRON 20 ug/dL (50-170); TIBC 322 ug/dL (250-450)
--- NOTE | 2019-03-02 13:27 | NUR ---
PATIENT SAT IN CHAIR FOR A FEW HOURS, SHE IS GOING BACK TO BED AT THIS TIME. SHE EXPRESSED SHE WANTS TO REST FOR A WHILE. HER COUGHING HAS BECOME A BIT LESS SINCE THE MUCINEX THIS MORNING. NURSE TO CONTINUE TO MONITOR PATIENT STATUS.
--- NOTE | 2019-03-02 13:54 | NUR ---
ON-GOING ASSESSMENT: PT WAS RAISED TO 4L OXYGEN AND CONTINUES TO HAVE COUGH. PTS INR WAS ELEVATED LAST NIGHT AND ALSO HER HEMOGLOBIN DROPPED. GI HAS BEEN CONSULTED TO SEE PATIENT. CM WILL CONTINUE TO FOLLOW TO ASSIST NEEDED.
[2019-03-02 15:14] VITALS: BP 111/63
--- NOTE | 2019-03-02 15:53 | NUR ---
RECIEVED BATH AND SHEETS CHANGE. SAT IN THE CHAIR AND UP AD NGA. PATIENT WAS POSITIVE AND HOPEFUL. RIGHT SIDED FINE CRACKLES PERSISTED THROUGHOUT THE DAY. O2 INCREASED FROM 3-4 LITERS. O2 SAT REMAINS >93%. NO COMPLAINTS OF SOA. COMPLAINS OF UPPER SHOULDER AND BACK PAIN. MEDICATION AND REST IMPROVED.
--- NOTE | 2019-03-02 16:09 | NUR ---
I have reviewed the student'S documentation.
--- NOTE | 2019-03-02 20:08 | NUR ---
PATIENT ASSESSMENTS AND VITAL SIGNS DOCUMENTED. SHE HAS EXPRESSED PAIN, SPECIALLY WHEN THE COUGH IS WORSE. PLAN OF CARE IS TO CONTINUE TO MONITOR PATIENT STATUS, OXYGENATION, AND PNEUMONIA STATUS. PATIENT PLAN TO HAVE A EGD ONCE PNEUMONIA IS MORE STABLE. PATIENT ON ROOM AIR AT NIGHT AND IS ON 4L PER NC HERE.
[2019-03-03 04:57] VITALS: BP 112/63
[2019-03-03 07:33] VITALS: BP 116/77
--- NOTE | 2019-03-03 13:41 | NUR ---
ON-GOING ASSESSMENT: PTS HEMOGLOBIN IS 7.6. GI HAS SEEN PATIENT AND PLAN FOR EGD OUTPATIENT AND CONCERNS FOR DOING IT WITH HER PULM STATUS OF NOW. PT REMAINS ON OXYGEN. CM WILL CONTINUE TO FOLLOW TO ASSIST NEEDED.
[2019-03-03 15:16] VITALS: BP 120/70
--- NOTE | 2019-03-03 17:01 | NUR ---
ASSUMED PARIENT CARE AT 0700. A/O X4. ANXIOUS. PAIN MEDS GIVRN NEEDS. COUGHT. UP AD NGA. PROGRESSING TOWARDS POC GOALS.
[2019-03-03 19:17] VITALS: BP 138/75
--- NOTE | 2019-03-04 03:52 | NUR ---
Pt. requested anxiety and pain med with good relief. She slept fair during the night. Maintaining O2 sat in the mid 90's on 3L/NC. No respiratory distress. Making progress towards care plan goals.
[2019-03-04 05:32] VITALS: BP 125/71
[2019-03-04 05:45] LABS: HEMOGLOBIN 7.6 gm/dL (12.0-15.0)
[2019-03-04 05:57] LABS: INR 1.3; PROTIME 13.8 Seconds (9.3-11.4)
[2019-03-04 06:16] LABS: CALCIUM 8.9 mg/dL (8.5-10.1); CREATININE 0.8 mg/dL (0.6-1.0); POTASSIUM 3.8 mmol/L (3.5-5.1)
[2019-03-04 07:58] VITALS: BP 114/71
[2019-03-04] MEDS ORDERED: ROBITUSSIN100 MG/53 PO (12:32)
[2019-03-04] MEDS ORDERED: OXYCODONE HCL15 MG PO (12:34)
--- NOTE | 2019-03-04 16:28 | NUR ---
ASSUMED PATIENT CARE AT 0700. A/O X4. CONGESTED COUGHT. PAIN MEDS GIVEN NEED, WILL DC HOME WITH 02.
[2019-03-04 16:30] VITALS: BP 115/70
[2019-03-04 17:39] VITALS: BP 115/70
[2019-03-05] MEDS ORDERED: SYMBICORT160 MCG/4. INH (13:18)
[2019-03-05] MEDS ORDERED: AUGMENTIN 875-1 EACH PO (13:38)
[2019-03-05] MEDS ORDERED: PROZAC40 MG PO (13:39)
[2019-03-05] MEDS ORDERED: ROBITUSSIN100 MG/53 PO (13:40)
== END 2019-03-04 18:55 | disposition home or self-care (01) | DRG 177 ==
LOC: ER 08:32 → 4S 11:29 → 3W 11:29 → EROBS 11:29 → 3W 14:05 → 4S 02-26 13:51 → 3W 03-04 13:35
PROVIDERS: Emergency Medicine; Internal Medicine Gastroenterology; Nurse Practitioner; ADMIT Family Medicine
DX: J69.0 Pneumonitis due to inhalation of food and vomit (principal); J96.01 Acute respiratory failure with hypoxia; J44.0 Chronic obstructive pulmonary disease with (acute) lower respiratory infection; N17.9 Acute kidney failure, unspecified; J45.901 Unspecified asthma with (acute) exacerbation; K92.1 Melena; J44.1 Chronic obstructive pulmonary disease with (acute) exacerbation; R09.02 Hypoxemia; K21.9 Gastro-esophageal reflux disease without esophagitis; G89.29 Other chronic pain; M54.2 Cervicalgia; D64.9 Anemia, unspecified; M54.9 Dorsalgia, unspecified; F32.9 Major depressive disorder, single episode, unspecified; D50.9 Iron deficiency anemia, unspecified; E87.6 Hypokalemia; Z94.7 Corneal transplant status; Z90.49 Acquired absence of other specified parts of digestive tract; Z86.711 Personal history of pulmonary embolism; Z91.041 Radiographic dye allergy status; Z79.01 Long term (current) use of anticoagulants; Z93.1 Gastrostomy status; Z79.899 Other long term (current) drug therapy
CPT/HCPCS: 10100; 10879; 50455

== ENCOUNTER → 2019-03-08 | Outpatient (CLI) | payer OTHER ==
[~2019-03-08] VITALS: Ht 165.1 cm; Wt 111.1 kg
[~2019-03-08] MED LIST changes: +LASIX 40 MG TAB40 M2 PO; +PROZAC40 MG PO
[2019-03-08 08:11] LABS: HEMATOCRIT 24.7 % (37.0-47.0); HEMOGLOBIN 7.7 gm/dL (12.0-15.0); MCH 24.1 pg (26.0-34.0); MCV 77.7 fL (80.0-100.0); RBC 3.18 mil/uL (4.20-5.00); RDW 19.5 % (10.5-14.5); WBC 15.5 thou/uL (4.0-11.0)
--- NOTE | 2019-03-11 07:29 | HC ---
[facility] [place] [address] CONSULTATION Name: DOMENIC MORA [facility] #[facility] [id number] Admission: 03/08/19 Attend Phys: Gino Salamanca MD Discharge: Date of : 52 Report #: [id number] THIS REPORT FOR: //name// CC: Gino Moore MD OUTPATIENT CONSULTATION REPORT CHIEF COMPLAINT: The patient is a 68-year-old woman with Hemoccult positive stools, black stools and anemia. HISTORY OF PRESENT ILLNESS: This patient is cared for by Dr. Eliu Moore. She was recently admitted to [facility]. In summary, she has a history of hiatus hernia and reflux disease. About 4-5 years ago, she had surgery in another hospital. She tells me that they "nicked the esophagus." Apparently, the antireflux procedure was never completed. She had a prolonged hospitalization. She subsequently was seen by Dr. Ruvalcaba and brought to [facility] and had a paraesophageal hernia and had laparoscopic repair of incarcerated paraesophageal hernia in 12/2014. She had a PEG tube placed and subsequently had a PEG tube removed. Unfortunately, she has had recurrent pneumonias, including one in July for which she was hospitalized and another 1 this past week. She reported she had black stools. Stools were found to be Hemoccult positive. There was a drop in the hemoglobin from 10.5 on admission down to 7.6 by the time of discharge. However, since she had pneumonia, she was discharged for outpatient management and returned for an upper endoscopy, which she did today. The patient was discharged on 03/04/2019. However, she said they were not able to get her prescriptions and thus she has not been taking her antibiotics for her pneumonia. When she presented today to the GI lab, she had a fever of over 101. She reports her breathing is better. She reports her cough is improved. However, she says stools remain dark. The situation was discussed with the anesthesia service. Due to her fever and pneumonia, it felt not safe to proceed at this point in time. However, there is concern that she was having dark stools, which were Hemoccult positive and she had continued GI bleeding. She does have a history of multiple pulmonary emboli and has been on Coumadin, although has been on hold since her recent admission. Hemoglobin this morning was 7.7, which is stable compared to 7.6 on the . Therefore, it was felt that her hemoglobin is stable and we could defer endoscopy at this time and treat her pneumonia and have her returned at a later date. PAST MEDICAL HISTORY: She has had problems with recurrent pneumonias, high blood pressure, reflux disease, hiatus hernia, diarrhea, C. diff, pulmonary [facility] [address] [place] [address] CONSULTATION Name: DOMENIC MORA Room #: REG [facility] Angelica#: [id number] Admission: 03/08/19 Attend Phys: Gino Salamanca MD Discharge: Date of : 52 Report #: [id number] embolism with chronic anticoagulation. PAST SURGICAL HISTORY: Cholecystectomy, surgery for hernia repair, which had a complication followed by repair of her hiatus hernia and PEG tube placement. ALLERGIES: IODINE AND IODINE CONTRAST. HOME MEDICATIONS: I believe Augmentin 875 mg twice daily, baclofen 10 mg daily, oxycodone IR 15 mg q. 4, clonazepam 1 mg 3 times daily, gabapentin 600 mg 4 times daily, Prozac 40 mg daily, BuSpar 10 mg twice daily, furosemide 40 mg as needed, Symbicort 2 puffs twice daily, Singulair 10 mg at bedtime, Robitussin as needed, omeprazole 20 mg daily, Lotrimin topically b.i.d., multivitamin. Her Coumadin has been on hold. SOCIAL HISTORY: Does not smoke, consume alcohol, but she is . REVIEW OF SYSTEMS: GENERAL: She has fever of 101 today, but she has not had any recent fever or chills. HEENT: No change in vision, hearing, or sores in the mouth. PULMONARY: Shortness of breath and cough have improved. CARDIOVASCULAR: No chest pain, chest tightness. GASTROINTESTINAL: Stools remain dark in color, either dark brown or black. No abdominal pain. MUSCULOSKELETAL: Chronic pain. SKIN: Without rashes. PHYSICAL EXAMINATION: GENERAL: The patient is a well-developed, morbidly obese woman in no acute distress. HEENT: Anicteric. Pupils are equal and round. Oropharynx clear. NECK: Supple. CHEST: Good breath sounds throughout. A few crackles at the left lung base. HEART: Regular rate and rhythm. S1, S2. ABDOMEN: Obese, normal bowel sounds, soft, nontender, without hepatosplenomegaly. EXTREMITIES: Without cyanosis, clubbing, or edema. NEUROLOGICAL: Oriented to person, place, and time. Moves all 4 extremities well. ASSESSMENT: 1. Reflux disease with suspected aspiration. 2. Large hiatus hernia noted on recent imaging studies. 3. Pneumonia. 4. Obesity. 5. Chronic pain. [facility] [address] [place] [address] CONSULTATION Name: DOMENIC MORA Room #: REG [facility] Vela#: [id number] Admission: 03/08/19 Attend Phys: Gino Salamanca MD Discharge: Date of : 52 Report #: [id number] 6. History of deep venous thrombosis, warfarin on hold. RECOMMENDATIONS: Discussed with anesthesia service. Also, discussed with the patient and also with Dr. Eliu Moore. Since she has a fever and does not appear to be actively bleeding at this time, we will hold off on the endoscopy today. She is to see Dr. Eliu Moore tomorrow and he will discuss issues of anticoagulation for her deep venous thrombosis. Ideally, we would like to have her complete her antibiotics and return in 2 weeks after antibiotics have been completed for endoscopic evaluation; however, her anticoagulation, GI bleeding may be problematic. If that is the case, we may need to proceed in an earlier date in spite of the fact that she has multiple comorbidities, especially if there is concern for GI bleeding or whether she needs to be cleared to be placed back on anticoagulation for a history of deep venous thrombosis. <ELECTRONICALLY SIGNED> By: Gino Salamanca MD 03/11/19 0729 1153 2311 Gino Salamanca MD /nt
== END | disposition home or self-care (01) ==
LOC: GI 06:44
PROVIDERS: Specialist
DX: K21.9 Gastro-esophageal reflux disease without esophagitis (principal); Z53.8 Procedure and treatment not carried out for other reasons; K44.9 Diaphragmatic hernia without obstruction or gangrene; E66.09 Other obesity due to excess calories; G89.29 Other chronic pain; Z87.01 Personal history of pneumonia (recurrent); Z86.718 Personal history of other venous thrombosis and embolism; Z79.01 Long term (current) use of anticoagulants; Z91.041 Radiographic dye allergy status; Z90.49 Acquired absence of other specified parts of digestive tract; Z98.890 Other specified postprocedural states

== ENCOUNTER → 2019-06-02 | Outpatient (CLI) | payer OTHER | LOC: MRI 09:38 | DX: R90.82 White matter disease, unspecified (principal) ==

== ENCOUNTER → 2019-07-08 | Outpatient (CLI) | payer OTHER | LOC: SJCVCIMAG 10:51 | DX: R06.02 Shortness of breath (principal); R53.83 Other fatigue; Z78.0 Asymptomatic menopausal state ==

== ENCOUNTER → 2019-08-03 | Outpatient (CLI) | payer OTHER ==
[~2019-08-03] MED LIST changes: +ALBUTEROL2.5 MG/31 INH; +COUMADIN 4 MG TA4 M1 PO; +LEVAQUIN 750 M750 MG PO; +PREDNISONE 20 M20 MG PO
== END ==
LOC: SJCVC 09:36
DX: I27.20 Pulmonary hypertension, unspecified (principal); I77.810 Thoracic aortic ectasia; I82.409 Acute embolism and thrombosis of unspecified deep veins of unspecified lower extremity; Z79.01 Long term (current) use of anticoagulants; Z79.899 Other long term (current) drug therapy

== ENCOUNTER 2019-08-07 08:10 | Emergency (ER) | payer OTHER ==
[~2019-08-07] VITALS: Ht 165.1 cm; Wt 108.9 kg
[~2019-08-07 08:10] MED LIST changes: -ALBUTEROL2.5 MG/31 INH; -COUMADIN 4 MG TA4 M1 PO; -LEVAQUIN 750 M750 MG PO; -PREDNISONE 20 M20 MG PO
[2019-08-07 08:51] LABS: HEMATOCRIT 33.2 % (37.0-47.0); HEMOGLOBIN 9.6 gm/dL (12.0-15.0); MCH 19.8 pg (26.0-34.0); MCV 68.2 fL (80.0-100.0); RBC 4.87 mil/uL (4.20-5.00); RDW 22.1 % (10.5-14.5); WBC 12.5 thou/uL (4.0-11.0)
[2019-08-07 08:58] LABS: ANION GAP 8 mmol/L (7-16); BUN 23 mg/dL (7-18); CALCIUM 9.6 mg/dL (8.5-10.1); CHLORIDE 104 mmol/L (98-107); CO2 29 mmol/L (21-32); CREATININE 0.9 mg/dL (0.6-1.0); GLUCOSE 94 mg/dL (74-106); POTASSIUM 3.8 mmol/L (3.5-5.1); SODIUM 141 mmol/L (136-145)
[2019-08-07 09:08] LABS: TROPONIN-I <0.06 ng/mL (<0.06)
[2019-08-07] MEDS ORDERED: COUMADIN 4 MG TA4 M1 PO (09:35)
[2019-08-07 11:01] LABS: INR 1.6; PROTIME 16.4 Seconds (9.3-11.4)
[2019-08-07] MEDS ORDERED: ALBUTEROL2.5 MG/31 INH (11:35)
[2019-08-07] MEDS ORDERED: PREDNISONE 20 M20 MG PO (11:35)
[2019-08-07] MEDS ORDERED: LEVAQUIN 750 M750 MG PO (11:35)
[2019-08-07 11:47] VITALS: BP 156/72
--- NOTE | 2019-08-09 08:31 | EKG ---
[facility] [place] [address] ELECTROCARDIOGRAM REPORT Name: DOMENIC MORA [facility] [id number] Admission: 08/07/19 Attend Phys: Discharge: 08/07/19 Date of : 52 Report #: [id number] THIS REPORT FOR: cc: Eliu Moore MD, Neal A. 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 : 1950 Requested By: Kenny Evans Order Number: [id number] MD: Octavio Chavez Measurements Intervals [place] Rate: 91 P: 25 MS: 129 QRS: -12 QRSD: 90 T: 4 QT: 350 QTc: 431 Interpretive Statements Sinus rhythm Atrial premature complexes Compared to ECG 03/01/2019 08:33:05 Atrial premature complex(es) now present Electronically Signed On 08-09-2019 8:30:11 EARLY CHILDHOOD EDUCATION SPECIALIST by Octavio Chavez [email or web address] <ELECTRONICALLY SIGNED> By: Octavio Chavez MD, [facility] 08/09/19 0830 6 6 Octavio Chavez MD, [facility] /EPI
== END 2019-08-07 11:48 | disposition home or self-care (01) ==
LOC: ER 08:10
PROVIDERS: Emergency Medicine
DX: J18.8 Other pneumonia, unspecified organism (principal); G89.29 Other chronic pain; Z91.041 Radiographic dye allergy status; Z90.49 Acquired absence of other specified parts of digestive tract; Z86.711 Personal history of pulmonary embolism; Z86.14 Personal history of Methicillin resistant Staphylococcus aureus infection; Z86.2 Personal history of diseases of the blood and blood-forming organs and certain disorders involving the immune mechanism

== ENCOUNTER 2019-08-25 11:42 | Inpatient (IN) | payer OTHER ==
[~2019-08-25] VITALS: Ht 167.6 cm; Wt 113.8 kg
[~2019-08-25 11:42] MED LIST changes: +ALBUTEROL2.5 MG/31 INH; +COUMADIN 4 MG TA4 M1 PO; +LEVAQUIN 750 M750 MG PO; +PREDNISONE 20 M20 MG PO
[2019-08-25 14:53] LABS: HEMATOCRIT 32.1 % (37.0-47.0); HEMOGLOBIN 9.2 gm/dL (12.0-15.0); MCHC 28.6 g/dL (28.0-37.0); MCV 69.8 fL (80.0-100.0); RBC 4.6 mil/uL (4.20-5.00); RDW 21.5 % (10.5-14.5); WBC 20.1 thou/uL (4.0-11.0)
[2019-08-25 17:02] VITALS: BP 136/79
[2019-08-25 19:15] VITALS: BP 126/71
[2019-08-26 04:08] VITALS: BP 110/59
[2019-08-26 07:50] VITALS: BP 134/71
[2019-08-26 14:24] LABS: HEMATOCRIT 30.5 % (37.0-47.0); MCH 20.2 pg (26.0-34.0); MCHC 29.4 g/dL (28.0-37.0); MCV 68.7 fL (80.0-100.0); RBC 4.45 mil/uL (4.20-5.00); RDW 21.4 % (10.5-14.5); WBC 20.6 thou/uL (4.0-11.0)
[2019-08-26 14:35] LABS: CREATININE 1.4 mg/dL (0.6-1.0); POTASSIUM 3.2 mmol/L (3.5-5.1)
[2019-08-26 19:11] VITALS: BP 110/67
[2019-08-26 21:42] VITALS: BP 126/73
[2019-08-27] VITALS (36 sets, daily range): BP systolic 96–206; BP diastolic 44–177
[2019-08-27 05:46] LABS: CALCIUM 8.5 mg/dL (8.5-10.1); CREATININE 1.1 mg/dL (0.6-1.0); POTASSIUM 3.5 mmol/L (3.5-5.1)
[2019-08-27 16:15] LABS: BE(vivo) -1.7 mmol/L (-2 to +3); HCO3 23.8 mmol/L (22.0-26.0); PCO2 43.5 mmHg (35.0-45.0); PO2 73.1 mmHg (80.0-100.0)
[2019-08-27 20:56] LABS: BE(vivo) -0.3 mmol/L (-2 to +3); HCO3 24.8 mmol/L (22.0-26.0); PCO2 42.3 mmHg (35.0-45.0); PO2 254.2 mmHg (80.0-100.0); pH 7.386 (7.360-7.450)
[2019-08-28] VITALS (24 sets, daily range): BP systolic 92–116; BP diastolic 47–73
[2019-08-28 00:37] LABS: sO2 99.6 % (92.0-98.0)
[2019-08-28 10:08] LABS: BE(vivo) 1.3 mmol/L (-2 to +3); HCO3 25.8 mmol/L (22.0-26.0); PCO2 39.9 mmHg (35.0-45.0); PO2 85.6 mmHg (80.0-100.0); pH 7.428 (7.360-7.450); sO2 96.7 % (92.0-98.0)
[2019-08-28 10:33] LABS: HEMOGLOBIN 7.8 gm/dL (12.0-15.0); MCH 20.5 pg (26.0-34.0); MCHC 30.1 g/dL (28.0-37.0); MCV 68.2 fL (80.0-100.0); RDW 22.2 % (10.5-14.5); WBC 13.4 thou/uL (4.0-11.0)
[2019-08-28 10:59] LABS: PLATELET COUNT 326 thou/uL (150-400)
[2019-08-28 11:56] LABS: CALCIUM 9.6 mg/dL (8.5-10.1); CREATININE 0.8 mg/dL (0.6-1.0); POTASSIUM 3.5 mmol/L (3.5-5.1)
[2019-08-28 12:08] LABS: ABSOLUTE NEUTROPHILS 12.7 thou/uL (1.4-8.2)
[2019-08-28 12:09] LABS: ANISOCYTOSIS 3+; HYPOCHROMASIA 3+; MICROCYTES 3+
[2019-08-28 12:10] LABS: OVALOCYTES FEW
[2019-08-29] VITALS (16 sets, daily range): BP systolic 94–135; BP diastolic 50–72
[2019-08-29 05:17] LABS: BE(vivo) -0.6 mmol/L (-2 to +3); HCO3 23.4 mmol/L (22.0-26.0); PCO2 35.5 mmHg (35.0-45.0); PO2 89.8 mmHg (80.0-100.0); pH 7.436 (7.360-7.450); sO2 97.2 % (92.0-98.0)
[2019-08-29 05:24] LABS: HEMATOCRIT 25.3 % (37.0-47.0); HEMOGLOBIN 7.4 gm/dL (12.0-15.0); MCHC 29.2 g/dL (28.0-37.0); MCV 68.5 fL (80.0-100.0); PLATELET COUNT 312 thou/uL (150-400); RBC 3.69 mil/uL (4.20-5.00); RDW 21.3 % (10.5-14.5); WBC 12.5 thou/uL (4.0-11.0)
[2019-08-29 05:48] LABS: ALBUMIN 1.6 g/dL (3.4-5.0); CALCIUM 8.9 mg/dL (8.5-10.1); CREATININE 0.7 mg/dL (0.6-1.0); POTASSIUM 4.4 mmol/L (3.5-5.1); TOTAL BILIRUBIN 0.3 mg/dL (<0.1-1.0); TOTAL PROTEIN 7.2 g/dL (6.4-8.2)
[2019-08-29 06:31] LABS: ABSOLUTE NEUTROPHILS 10.8 thou/uL (1.4-8.2); ANISOCYTOSIS 2+; HYPOCHROMASIA 3+; MICROCYTES 2+; POLYCHROMASIA 1+
[2019-08-29 06:32] LABS: OVALOCYTES FEW
[2019-08-30] VITALS (23 sets, daily range): BP systolic 104–174; BP diastolic 54–88
[2019-08-30 02:46] LABS: HEMATOCRIT 26.6 % (37.0-47.0); HEMOGLOBIN 7.9 gm/dL (12.0-15.0); MCH 20.2 pg (26.0-34.0); MCHC 29.8 g/dL (28.0-37.0); MCV 67.8 fL (80.0-100.0); PLATELET COUNT 349 thou/uL (150-400); RBC 3.93 mil/uL (4.20-5.00); RDW 20.9 % (10.5-14.5); WBC 9.9 thou/uL (4.0-11.0)
[2019-08-30 03:25] LABS: ALBUMIN 1.9 g/dL (3.4-5.0); CALCIUM 8.7 mg/dL (8.5-10.1); CREATININE 0.9 mg/dL (0.6-1.0); POTASSIUM 3.8 mmol/L (3.5-5.1); TOTAL BILIRUBIN 0.3 mg/dL (<0.1-1.0)
[2019-08-30 03:31] LABS: ABSOLUTE NEUTROPHILS 9.3 thou/uL (1.4-8.2); ANISOCYTOSIS 2+; HYPOCHROMASIA 3+; LARGE PLATELETS OCCASIONAL; MICROCYTES 2+; POLYCHROMASIA 1+
[2019-08-30 05:14] LABS: BE(vivo) 4.9 mmol/L (-2 to +3); HCO3 29.2 mmol/L (22.0-26.0); PCO2 42.4 mmHg (35.0-45.0); PO2 72.9 mmHg (80.0-100.0); pH 7.456 (7.360-7.450); sO2 95.3 % (92.0-98.0)
--- NOTE | 2019-08-30 08:05 | EKG ---
[facility] [place] [address] ELECTROCARDIOGRAM REPORT Name: DOMENIC MORA Room #: 244-P ADM IN M.R.#: [id number] Admission: 08/25/19 Attend Phys: Eliu Moore MD Discharge: Date of : 52 Report #: [id number] THIS REPORT FOR: cc: Eliu Moore MD, Neal A. 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: Muna ADEN : 1950 Requested By: Kenny Evans Order Number: [id number] MD: Octavio Chavez Measurements Intervals [place] Rate: 111 P: 39 AL: 136 QRS: 1 QRSD: 89 T: 66 QT: 327 QTc: 445 Interpretive Statements Sinus tachycardia Frequent supraventricular complexes Nonspecific repol abnormality Baseline wander in lead(s) V5,V6 Compared to ECG 08/07/2019 09:17:16 Heart rate has increased Electronically Signed On 08-30-2019 8:03:55 CDT by Octavio Chavez [email or web address] <ELECTRONICALLY SIGNED> By: Octavio Chavez MD, [facility] 08/30/19 0803 1516 1516 Octavio Chavez MD, [facility] /EPI
--- NOTE | 2019-08-30 08:12 | HC ---
[facility] [place] [address] CONSULTATION Name: DOMENIC MORA Room #: 244-P ADM IN M.R.#: [id number] Admission: 08/25/19 Attend Phys: Eliu Moore MD Discharge: Date of : 52 Report #: [id number] THIS REPORT FOR: cc: Eliu Moore MD, Neal A. MD Althoff, Jeffrey R. MD ~ CC: Eliu Moore DATE OF SERVICE: 08/26/2019 CHIEF COMPLAINT: Cellulitis and ulceration, right lower leg. HISTORY OF PRESENT ILLNESS: This is a 69-year-old female patient who was admitted to the hospital with increasing pain, tenderness and swelling of the right leg. She may have had an abrasion to the glass and she has developed redness and swelling since that time. The patient also concerned about pain involving her medial thigh as well without any redness there. PAST MEDICAL HISTORY: Positive for a history of previous corneal transplant, cholecystectomy, neck surgery, hiatal hernia, history of pulmonary emboli x 2, anemia, C. diff, pneumonia, spinal fusion. SOCIAL HISTORY: Positive for occasional alcohol use. Occasional history of tobacco or drug use. FAMILY HISTORY: Noncontributory. MEDICATIONS: Include Levaquin, prednisone, AccuNeb, Coumadin, Neurontin, Singulair, Unicomplex, Prilosec, OxyIR, clonazepam, baclofen, Lotrimin antifungal, Lasix, Symbicort, Prozac, Robitussin. ALLERGIES: IODINATED CONTRAST MATERIAL. REVIEW OF SYSTEMS: CONSTITUTIONAL: The patient denies fever, chills or weight loss. NEUROLOGICAL: The patient denies focal weakness, numbness or tingling. EYES: The patient denies any visual changes, redness or drainage. ENT: The patient denies earache, nasal drainage, sore throat. CARDIOVASCULAR: The patient denies chest pain, palpitations or diaphoresis. PULMONARY: The patient denies cough or shortness of breath. GASTROINTESTINAL: The patient denies nausea, vomiting, diarrhea. ORTHOPEDIC: The patient complains of pain, swelling, ulceration of the right lower extremity. Other systems in a 14-point review of systems are negative. PHYSICAL EXAMINATION: [address] [address] CONSULTATION Name: DOMENIC MORA Room #: 244-P [facility] IN ..#: [id number] Admission: 08/25/19 Attend Phys: Eliu Moore MD Discharge: Date of : 52 Report #: [id number] VITAL SIGNS: At this time include pulse 58, respiratory rate 18, blood pressure 134/71, temperature 101.1. GENERAL: This is a well-developed female patient who appears to be in minimal distress. HEENT: Head normocephalic. Nose and throat clear. NECK: Supple. LUNGS: Clear. HEART: Regular. ABDOMEN: Soft. Bowel sounds present. EXTREMITIES: Lower extremities demonstrate diminished distal pulses, likely due to swelling. She has 3+ edema to the right lower extremity, 2+ on the left. She has a small ulceration on the pretibial region on the right. Significant erythema involving the foot and lower leg. Mild tenderness in the medial thigh as well without any erythema. NEUROLOGIC: The patient is alert and oriented and appropriate. LABORATORY DATA: Include sodium 136, potassium 3.2, CO2 of 23, BUN 25, creatinine 1.4, glucose 136. White blood cell count 20.6 with hemoglobin of 9.0, hematocrit of 30.5. CLINICAL IMPRESSION: 1. Traumatic wound versus ulceration to the right lower extremity. 2. Cellulitis, right lower extremity. 3. History of pulmonary emboli and deep venous thrombosis. RECOMMENDATIONS: At this point in time, we will hold off on any compression at this time. I would recommend a venous Doppler to exclude underlying DVT before we begin compression. Empiric antibiotic therapy would be appropriate. Recommend culture of the right lower leg. Topical gentamicin, Xeroform and border foam for now. Elevation of the legs to control swelling. I appreciate being asked to see the patient in consultation. <ELECTRONICALLY SIGNED> By: Js Zee MD 08/30/19 0812 1645 1859 Js Zee MD /nt
[2019-08-31] VITALS (22 sets, daily range): BP systolic 96–149; BP diastolic 47–81
[2019-08-31 03:01] LABS: CALCIUM 8.9 mg/dL (8.5-10.1); CREATININE 0.8 mg/dL (0.6-1.0); HEMATOCRIT 26.9 % (37.0-47.0); MCH 20.3 pg (26.0-34.0); MCHC 29.8 g/dL (28.0-37.0); MCV 68.1 fL (80.0-100.0); POTASSIUM 3.5 mmol/L (3.5-5.1); RBC 3.95 mil/uL (4.20-5.00); RDW 21.2 % (10.5-14.5); WBC 10.4 thou/uL (4.0-11.0)
[2019-08-31 11:35] LABS: HCO3 28.7 mmol/L (22.0-26.0); PCO2 38.4 mmHg (35.0-45.0); PO2 69.9 mmHg (80.0-100.0); pH 7.491 (7.360-7.450); sO2 95.3 % (92.0-98.0)
[2019-09-01] VITALS (20 sets, daily range): BP systolic 119–137; BP diastolic 36–92
[2019-09-01 07:01] LABS: CALCIUM 9.2 mg/dL (8.5-10.1); CREATININE 0.8 mg/dL (0.6-1.0); POTASSIUM 3.6 mmol/L (3.5-5.1)
[2019-09-02] VITALS (15 sets, daily range): BP systolic 102–140; BP diastolic 52–78
[2019-09-02 06:08] LABS: CALCIUM 8.7 mg/dL (8.5-10.1); CREATININE 0.7 mg/dL (0.6-1.0); POTASSIUM 3.8 mmol/L (3.5-5.1)
[2019-09-03 04:26] VITALS: BP 127/67
[2019-09-03 08:52] VITALS: BP 119/72
[2019-09-03 16:00] VITALS: BP 106/69
[2019-09-04 04:44] VITALS: BP 135/79
[2019-09-04 07:20] VITALS: BP 123/81
[2019-09-04] MEDS ORDERED: FLAGYL 250 MG250 MG PO (10:35)
[2019-09-04] MEDS ORDERED: BACLOFEN 10MG T10 MG PO (10:36)
[2019-09-04] MEDS ORDERED: OXYCODONE HCL15 MG PO (10:36)
[2019-09-04] MEDS ORDERED: ELIQUIS5 MG PO (10:36)
[2019-09-04] MEDS ORDERED: CLONAZEPAM 1 MG1 M1 PO (10:37)
[2019-09-04] MEDS ORDERED: PREDNISONE 20 M20 MG PO (10:38)
[2019-09-04 10:53] LABS: HEMATOCRIT 32.3 % (37.0-47.0); HEMOGLOBIN 9.6 gm/dL (12.0-15.0); MCH 20.9 pg (26.0-34.0); MCHC 29.6 g/dL (28.0-37.0); MCV 70.5 fL (80.0-100.0); PLATELET COUNT 273 thou/uL (150-400); RBC 4.58 mil/uL (4.20-5.00); WBC 13.5 thou/uL (4.0-11.0)
[2019-09-04 11:21] LABS: ALBUMIN 2.4 g/dL (3.4-5.0); CALCIUM 8.7 mg/dL (8.5-10.1); CREATININE 0.8 mg/dL (0.6-1.0); POTASSIUM 3.8 mmol/L (3.5-5.1); TOTAL BILIRUBIN 0.4 mg/dL (<0.1-1.0); TOTAL PROTEIN 7.4 g/dL (6.4-8.2)
[2019-09-04 11:30] VITALS: BP 118/64
[2019-09-04 11:38] LABS: ABSOLUTE NEUTROPHILS 12.4 thou/uL (1.4-8.2); PLATELET ESTIMATE NORMAL
[2019-09-04 11:41] VITALS: BP 123/81
== END 2019-09-04 14:35 | disposition home or self-care (01) | DRG 870 ==
LOC: 4S 11:42 → ICU 11:49 → 4S 11:49 → 4N 08-26 13:02 → ICU 08-27 15:36 → 2N 09-02 16:17
PROVIDERS: Hospitalist; Internal Medicine; Internal Medicine Pulmonary Disease; Pediatrics; ADMIT Family Medicine
DX: A41.9 Sepsis, unspecified organism (principal); J96.01 Acute respiratory failure with hypoxia; L03.115 Cellulitis of right lower limb; N17.9 Acute kidney failure, unspecified; Z68.41 Body mass index [BMI] 40.0-44.9, adult; F32.9 Major depressive disorder, single episode, unspecified; F41.9 Anxiety disorder, unspecified; G89.29 Other chronic pain; M54.9 Dorsalgia, unspecified; E66.9 Obesity, unspecified; D64.9 Anemia, unspecified; Z91.041 Radiographic dye allergy status; Z93.1 Gastrostomy status; Z94.7 Corneal transplant status; Z90.49 Acquired absence of other specified parts of digestive tract; Z86.14 Personal history of Methicillin resistant Staphylococcus aureus infection; Z86.711 Personal history of pulmonary embolism
CPT/HCPCS: 10078; 10081; 10102; 10790

== ENCOUNTER → 2019-11-04 | Outpatient (CLI) | payer OTHER ==
[~2019-11-04] MED LIST changes: +ELIQUIS5 MG PO; +FLAGYL 250 MG250 MG PO; +LINEZOLID600 MG PO; +PREDNISONE 20 M20 M1 PO; +RESTORIL15 M1 PO
== END ==
LOC: SJCVCIMAG 14:00
PROVIDERS: ATTEND Nurse Practitioner
DX: I73.9 Peripheral vascular disease, unspecified (principal); L03.119 Cellulitis of unspecified part of limb; M79.604 Pain in right leg; M79.605 Pain in left leg; M79.89 Other specified soft tissue disorders; R23.8 Other skin changes

== ENCOUNTER 2019-11-09 22:56 | Inpatient (IN) | payer OTHER ==
[~2019-11-09] VITALS: Ht 167.6 cm; Wt 116.1 kg
[~2019-11-09 22:56] MED LIST changes: -LINEZOLID600 MG PO; -PREDNISONE 20 M20 M1 PO; -RESTORIL15 M1 PO
[2019-11-09 23:09] VITALS: BP 132/61
[2019-11-10 00:14] LABS: BE(vivo) 2.1 mmol/L (-2 to +3); HCO3 26.6 mmol/L (22.0-26.0); PO2 65.2 mmHg (80.0-100.0); sO2 93.3 % (92.0-98.0)
[2019-11-10 00:22] LABS: CALCIUM 8.4 mg/dL (8.5-10.1); POTASSIUM 4.1 mmol/L (3.5-5.1)
[2019-11-10 01:16] LABS: HEMATOCRIT 27.9 % (37.0-47.0); HEMOGLOBIN 8.3 gm/dL (12.0-15.0); MCH 20.7 pg (26.0-34.0); MCHC 29.7 g/dL (28.0-37.0); MCV 69.8 fL (80.0-100.0); PLATELET COUNT 400 thou/uL (150-400); RBC 3.99 mil/uL (4.20-5.00); RDW 19.7 % (10.5-14.5); WBC 13.2 thou/uL (4.0-11.0)
[2019-11-10 01:23] LABS: URINE BILIRUBIN NEGATIVE (Negative); URINE BLOOD NEGATIVE (Negative); URINE CLARITY CLEAR; URINE COLOR YELLOW; URINE GLUCOSE-RANDOM* NEGATIVE (Negative); URINE KETONES NEGATIVE (Negative); URINE LEUKOCYTES-REFLEX NEGATIVE (Negative); URINE NITRITE-REFLEX NEGATIVE (Negative); URINE PROTEIN (DIPSTICK) TRACE (Negative); URINE SPECIFIC GRAVITY 1.025 (1.005-1.035); URINE UROBILINOGEN 0.2 E.U./dl (0.2-1.0)
[2019-11-10 01:26] LABS: APTT 23.5 Seconds (24.5-32.8); PROTIME 10.5 Seconds (9.3-11.4)
[2019-11-10 02:00] VITALS: BP 124/57
[2019-11-10 02:10] LABS: ABSOLUTE NEUTROPHILS 10.2 thou/uL (1.4-8.2); ANISOCYTOSIS 2+; HYPOCHROMASIA 3+; MICROCYTES 2+
[2019-11-10 02:11] VITALS: BP 122/67
[2019-11-10 02:11] LABS: OVALOCYTES FEW; POLYCHROMASIA 1+
[2019-11-10 03:50] VITALS: BP 113/75
[2019-11-10] MEDS ORDERED: RESTORIL15 M1 PO (04:52)
--- NOTE | 2019-11-10 04:58 | NUR ---
PT LATE ADMIT VIA ER AND ARRIVED VIA CART. ADMISSION IS COMPLETED, CARE PLAN ACTIVATED, MED RECONCILIATION COMPLETED, AND IVPB ANTIBIOTICS INFUSING. PT BASELINE IS THAT SHE DOES NOT USE HOME OXYGEN. KEEPING 02 SAT ABOVE 90 OXYGEN TITRATED BETWEEN 4-6l VIA NC. PT HAS VERY PRODUCTIVE COUGH WITH COPIOUS AMOUNTS OF SPUTUM. CELLULITIS IS OBSERVED ON RIGHT LOWER EXTREMITY. ONLY COMPLAINTS FROM PT IS NAUSEA. PT ALSO STATES SHE IS HAVING SOME CONFUSION. CALL LIGHT WITHIN REACH. PT WAS SWABBED FOR COVID R/O. ISOLATION PRECAUTIONS IN PLACE.
[2019-11-10 08:00] VITALS: BP 135/80
--- NOTE | 2019-11-10 10:26 | NUR ---
INITIAL ASSESSMENT: Received consult. SW reviewed chart and spoke with nursing. Pt was admitted from home due to pneumonia/respiratory failure with hypoxia. Pt is in Enhance Isolation to r/o COVID-19. Test is currently pending. CTA of the chest ordered due to dyspnea. Pt is currently on continuous O2. SW spoke with pt via phone. Introduced role of SW. Pt is alert/orientated. Pt short of breath during conversation. Pt states she lives at home with her ex-, Emerson. Prior to admission, pt was independent with ADLs. Pt does have a cane to assist with ambulation. 1 step to enter the home. No steps inside. Pt has used [facility] in the past. No hx of post-acute placement. Pt's PCP is Dr. Moore. Pt to have therapy evals when able to participate. SW is following to assist as needed with discharge planning.
[2019-11-10 14:00] VITALS: BP 140/78
--- NOTE | 2019-11-10 18:22 | NUR ---
PATIENT IS QUITE UNABLE TO BE COMFORTABLE IN ANY ANGLE EXCEPT SITTING AT 90 DEGREES. SHE IS ALERT BUT FORGETFUL AT TIMES. BREATHINGIS LABORED. UP WITH STANDBY ASSIST TO BATHROOM. WILL CONT WITH PLAN OF CARE.
[2019-11-10 19:47] VITALS: BP 108/67
--- NOTE | 2019-11-10 22:45 | NUR ---
Assumed pt care @ 1900. Pt A/OX4,febrile temp 100.0. Pt complain of sorethroat and requested for Lozenges, notified and order initiated. Pt up to BSC with SBA. LS coarse/wheezy, sats 100% on 6L/NC,O2 titrated down by RT to 2L/NC at 1999. C/o generalized pain allover and medicated with Oxy 15mg. Fall precautions implemented and pt reminded to call for help.
[2019-11-11] VITALS (23 sets, daily range): BP systolic 89–118; BP diastolic 41–64
[2019-11-11 00:07] LABS: BE(vivo) -0.2 mmol/L (-2 to +3); HCO3 25.8 mmol/L (22.0-26.0); PCO2 48.3 mmHg (35.0-45.0); PO2 62.6 mmHg (80.0-100.0); pH 7.345 (7.360-7.450); sO2 90.6 % (92.0-98.0)
--- NOTE | 2019-11-11 00:39 | NUR ---
COOK MORNING ACTIVATED FOR DECREASED O2 SAT, DECRESED LOC AND RESP DISTRESS. SEE FLOW- SHEET FOR DETAILS. PT TRANSPORTED ON FULL STATISTICAL ANALYST WITH ALL BELONGINGS TO ICU WITH RN AND APPAREL MACHINERY INSTRUCTOR.
--- NOTE | 2019-11-11 00:45 | NUR ---
When RT came in to give midnight nebs, pt lethargic and sats in the lower 80's with increased oxygen demand,Rapid response initiated. Pt awakens to name and oriented but falls back to sleep fast. Pt had been medicated with pain meds at 2245, Narcan administered. See Rapid response notes as charted. Pt transferred to ICU [id number] via bed on security operations manager and oxygen @8L/NC. All personal belongings sent with pt. supervisor furnace process contacted /family on status and transfers.Pt report given to CHAPO Condon in ICU ABG's drawn prior to transfer.
--- NOTE | 2019-11-11 00:50 | NUR ---
PT'S UPDATED ON TRANSFER. QUESTIONS ANSWERED AND POC DISCUSSED.
--- NOTE | 2019-11-11 02:07 | NUR ---
PATIENT TRANSFERED FROM [facility] AT 0040, PATIENT LETHARGIC ON 8L NASAL CANNULA. DR. LAZCANO UPDATED ON PATIENT'S CONDITION. DR. FROST CONSULTED AND PATIENT PLACED ON OPTIFLO CANNULA. LINDO INSERTED. PLACED ON MONITOR. NO SIGN OF RESPIRATORY DISTRESS, WILL CONTINUE TO MONITOR.
--- NOTE | 2019-11-11 02:18 | NUR ---
PATIENT PLACED ON OPTIFLOW HIGH FLOW NASAL CANNULA ON 45% 40L.
--- NOTE | 2019-11-11 02:30 | NUR ---
COVID SWAB SAMPLE SENT TO LAB 11/11/19 1885.
--- NOTE | 2019-11-11 06:41 | NUR ---
PATIENT NOTED TO BE LESS DROWSY SINCE TRANSFERRING TO ICU. DESATS QUICKLY TO 84% WHEN CANNULA REMOVED BY PATIENT. LINDO PATENT WITH GREATER THAN 30ML/HR. NO SIGNIFICAN EVENTS, AWAITING COVID SWAB RESULTS. PLAN DISCUSSED WITH PATIENT, PATIENT VERBALIZED UNDERSTANDING, PROGRESSING TOWARDS GOALS. NO SIGN OF ACUTE DISTRESS NOTED AT THIS TIME. WILL CONTINUE TO MONITOR.
--- NOTE | 2019-11-11 12:10 | NUR ---
1210- Dr. Pruitt rounded on patient for consult. He wants patient on bipap when sleeping and at bedtime. He expressed to place a line, PICC or Central Line, and he was aware of the CT PE Protocol. Electrolyte protocol ordered.
--- NOTE | 2019-11-11 12:30 | NUR ---
COVID NEG X 2 BUT PATIENT IS FEBRILE AND REQUIRING INCREASED O2 NEEDS...DR JHONY KHANNA RECOMMENDS KEEPING PATIENT IN ENHANCED PRECAUTIONS AT PRESENT TIME..
--- NOTE | 2019-11-11 14:32 | NUR ---
SW reviewed chart. Pt was transferred from 3W to ICU during shift mechanic due to respiratory distress. Pt on O2. Pt in Enhanced Isolation. First and second COVID-19 tests are negative. SW is following to assist as needed with discharge planning.
--- NOTE | 2019-11-11 14:36 | NUR ---
VASCULAR ACCESS NOTE ORDER FOR PICC PLACEMENT R/T VESICANTS ORDER VERIFIED AND CONSENT OBTAINED FROM PATIENT. R BRACHIAL VEIN WIDELY PATENT ON U.S ASSESSMENT. PATIENT PREPPED AND DRAPED UNDER STERILE CONDITIONS. 3ML 1% LIDOCAINE INJ GIVEN. VEIN CANNULATED WITH ONE ATTEMPT. GUIDEWIRE ADVANCED EASILY. VEIN DILATED. GUIDEWIRE REMOVED INTACT. 4FR DL PICC TRIMMED TO 40CM INSERTED WITH EASE. PEEL AWAY DILATOR REMOVED. LINE PLACED AT 39CM INTERNAL, 1CM EXTERNAL. BOTH LUMENS FLUSH AND DRAW EASILY. PATIENT TOLERATED PROCEDURE WELL. CXR SHOWS LINE TERMINATING IN MID SVC. LINE RELEASED FOR IMMEDIATE USE TO RN.
[2019-11-11 15:04] LABS: CALCIUM 8.8 mg/dL (8.5-10.1); CREATININE 1.1 mg/dL (0.6-1.0); POTASSIUM 4.1 mmol/L (3.5-5.1)
[2019-11-11 15:05] LABS: MAGNESIUM 1.9 mg/dL (1.8-2.4)
--- NOTE | 2019-11-11 18:16 | NUR ---
Patient remains consistent with oxygen demands and oxygen provided. Physicians rounded today. Patient not progressing towards plan of care goals as evidenced by oxygen requirements, short of air with minimal exertion. Nurse to continue to monitor patient status.
[2019-11-12] VITALS (17 sets, daily range): BP systolic 88–130; BP diastolic 44–65
[2019-11-12 06:50] LABS: CREATININE 0.9 mg/dL (0.6-1.0); POTASSIUM 4.2 mmol/L (3.5-5.1)
--- NOTE | 2019-11-12 11:00 | NUR ---
Assess for class III extreme obesity, BMI 41.4. Admit with SOA, fever, cough. Neg COVID results, but still keeping isolation. Unable to speak with pt. Chart reviewed, past admit in 08/2019 and required intubation for airway protection. Wts are variable 238-256 lb. On lasix. Eating 50-60%. Alerted RN to discuss with pt any need for mech altered diet since pt had reported last admit that does not wear dentures when eating. Low nutrition risk
--- NOTE | 2019-11-12 14:07 | NUR ---
REPORT GIVEN TO RADHA COWAN ON 3W. PT TO TRANSFER TO 358. ALL BELONGINGS WILL BE SENT WITH PT
--- NOTE | 2019-11-12 16:44 | NUR ---
SW reviewed chart. Pt was transferred from ICU to 3W earlier today. Pt remains in Enhanced Isolation due to fevers/respiratory distress. No weekend discharge planned. SW is following to assist as needed with discharge planning.
--- NOTE | 2019-11-12 18:21 | NUR ---
assumed care of pt on arrival to unit at approx 1430. pt alert and oriented. on optiflow at 40L/45%. coarse lung sounds. blood sugars well controlled. iv abx infusing per order. isolation precautions still in place per ID rec. Sinus on telemetry. no other changes to report at this time.
[2019-11-13 03:36] VITALS: BP 116/69
[2019-11-13 05:53] LABS: HEMATOCRIT 24.9 % (37.0-47.0); HEMOGLOBIN 7.4 gm/dL (12.0-15.0); MCH 20.7 pg (26.0-34.0); MCHC 29.7 g/dL (28.0-37.0); MCV 69.8 fL (80.0-100.0); RBC 3.57 mil/uL (4.20-5.00); RDW 19.2 % (10.5-14.5); WBC 8.4 thou/uL (4.0-11.0)
[2019-11-13 05:58] LABS: CALCIUM 8.9 mg/dL (8.5-10.1); CREATININE 0.9 mg/dL (0.6-1.0); POTASSIUM 4.1 mmol/L (3.5-5.1)
--- NOTE | 2019-11-13 06:19 | NUR ---
ASSUMED CARE AT 1900. PT HAS VERY COARSE, CONGESTED LUNGS, SLIGHTLY WORSE ON RIGHT SIDE; MAINTAINING HIGH 90'S O2 SATS ON 40L O2 VIA OPTIFLO CANULA. LINDO DRAINING WELL OVERNIGHT. PT HAS C/O NECK PAIN THAT IS WORSE ON THE RIGHT, AND THIS AM REPORTED IT FELT LIKE A CRAMP THAT WAS KEEPING HER FROM MOVING HER RIGHT ARM/TURNING HER HEAD; STARTED TO HAVE SOME RELIEF AFTER MORNING DOSE OF BACLOFEN. NO OTHER CONCERNS, WILL CONTINUE TO MONITOR.
[2019-11-13 08:08] VITALS: BP 126/64
[2019-11-13 11:56] VITALS: BP 120/59
--- NOTE | 2019-11-13 15:00 | NUR ---
PT REQUESTING TO WALK AROUND ROOM...SHE DID VERY WELL AND JUST NEEDED ASSIST WITH LINES/TUBES...SHE TOOK 3 LAPS AROUND ROOM AND DID REPORT SLIGHT VERTIGO...
[2019-11-13 16:56] VITALS: BP 119/68
[2019-11-13 20:12] VITALS: BP 123/59
[2019-11-14 04:38] VITALS: BP 131/77
[2019-11-14 05:57] LABS: HEMOGLOBIN 7.4 gm/dL (12.0-15.0); MCH 21.3 pg (26.0-34.0); MCHC 30.6 g/dL (28.0-37.0); MCV 69.5 fL (80.0-100.0); RBC 3.46 mil/uL (4.20-5.00); RDW 19.3 % (10.5-14.5); WBC 6.4 thou/uL (4.0-11.0)
--- NOTE | 2019-11-14 06:11 | NUR ---
ASSUMED CARE AT 1900. PT HAS SLIGHTLY IMPROVED LUNG SOUNDS COMPARED TO PREVIOUS SHIFT, LESS WHEEZING PRESENT BUT STILL CONGESTED WITH FREQ COUGH. REPORTED ONE INSTANCE OF NAUSEA, GAVE ZOFRAN FOR RELIEF. WASHED HAIR AND TOOK A SPONGE BATH THIS AM. HAS BEEN SR ON TELE WITH HR 60-70 AND OCCASIONAL PAC. NO OTHER CONCERNS, WILL CONTINUE TO MONITOR.
[2019-11-14 06:31] LABS: CALCIUM 8.8 mg/dL (8.5-10.1); CREATININE 0.8 mg/dL (0.6-1.0); MAGNESIUM 2.2 mg/dL (1.8-2.4); POTASSIUM 4.4 mmol/L (3.5-5.1)
[2019-11-14 08:18] VITALS: BP 132/66
[2019-11-14 12:10] VITALS: BP 113/54
--- NOTE | 2019-11-14 14:52 | NUR ---
PT REPORTS FEELING SHORT OF AIR...SATS 95% ON 2L...NONPRODUCTIVE HARSH COUGH NOTED...WILL MONITOR..
--- NOTE | 2019-11-14 15:29 | NUR ---
ENHANCED PRECAUTIONS MAY BE DISCONTINUED PER KATIE KATZ...WILL NOTIFY DR BOOTH TO REQUEST BED TYPE.
--- NOTE | 2019-11-14 15:46 | 2DMMODE ---
[facility] [place] [address] 2 D/M-MODE ECHOCARDIOGRAM Name: MORGANDOMENIC Bowen Room #: 358-P ADM IN M.R.#: [id number] Admission: 11/10/19 Attend Phys: Eliu Moore MD Discharge: Date of : 52 Report #: [id number] THIS REPORT FOR: cc: Eliu Moore MD, Neal A. MD Lammoglia, Francisco J. MD ~ APPROVED REPORT Study performed: 11/13/2019 12:31:30 EXAM: Comprehensive 2D, Doppler, and color-flow Echocardiogram Patient Location: Bedside Room #: 358 Status: routine BSA: 2.22 HR: 82 bpm BP: 126/64 mmHg Rhythm: NSR Other Information Study Quality: Adequate Indications CHF 2D Dimensions RVDd: 48.32 mm IVSd: 8.15 (7-11mm) LVOT Diam: 20.58 (18-24mm) LVDd: 54.57 mm PWd: 9.03 (7-11mm) Ascending Ao: 38.44 (22-36mm) LVDs: 34.65 (25-40mm) Aortic Root: 31.49 mm IVC: 26.00 mm Volumes Left Atrial Volume (Systole) Single Plane 4CH: 101.04 mL Single Plane 2CH: 81.27 mL LA ESV Index: 44.00 mL/m2 Aortic Valve AoV Peak Darwin.: 1.81 m/s AO Peak Gr.: 13.06 mmHg LVOT Max P.93 mmHg LVOT Max V: 1.11 m/s MARY Vmax: 2.04 cm2 [facility] [place] [address] 2 D/M-MODE ECHOCARDIOGRAM Name: DOMENIC MORA Room #: 358-P [facility] IN .R.#: [id number] Admission: 11/10/19 Attend Phys: Eliu Moore, Discharge: Date of : 52 Report #: [id number] Mitral Valve E/A Ratio: 1.2 MV Decel. Time: 239.00 ms MV E Max Darwin.: 1.15 m/s MV A Darwin.: 0.93 m/s MV PHT: 69.31 ms IVRT: 62.28 ms Pulmonary Valve PV Peak Darwin.: 0.83 m/s PV Peak Gr.: 2.77 mmHg Pulmonary Vein P Vein S: 0.86 m/s P Vein A: 0.54 m/s P Vein D: 0.75 m/s P Vein A Dur.: 134.9 msec P Vein S/D Ratio: 1.15 Tricuspid Valve TR Peak Darwin.: 3.05 m/s RAP Estimate: 10.00 mmHg TR Peak Gr.: 37.29 mmHg PA Pressure: 47.00 mmHg Left Ventricle Left ventricle is at the upper limits of normal. There is normal left ventricular wall thickness. The left ventricular systolic function is normal. The left ventricular ejection fraction is within the normal range. LVEF is 55-60%. Right Ventricle Right ventricle is mildly dilated. The right ventricular systolic function is normal. Atria Left atrium is moderately dilated. Right atrium is mildly dilated. Aortic Valve The aortic valve is normal in structure. No aortic regurgitation is present. There is no aortic valvular stenosis. Mitral Valve The mitral valve is normal in structure. Trace to mild mitral regurgitation. No evidence of mitral valve stenosis. Tricuspid Valve The tricuspid valve is normal in structure. Mild tricuspid regurgitation. PAP is estimated at 47 mmHg. [facility] [address] [place] [address] 2 D/M-MODE ECHOCARDIOGRAM Name: DOMENIC MORA Room #: 358-P [facility] IN .R.#: [id number] Admission: 11/10/19 Attend Phys: Eliu Moore, Discharge: Date of : 52 Report #: [id number] Pulmonic Valve The pulmonary valve is normal in structure. There is no pulmonic valvular regurgitation. Great Vessels The aortic root is normal in size. IVC is dilated and collapses >50% with inspiration. Pericardium There is no pericardial effusion. <Conclusion> Left ventricle is at the upper limits of normal. LVEF is 55-60%. Right ventricle is mildly dilated. The right ventricular systolic function is normal. The aortic valve is normal in structure. The mitral valve is normal in structure. Trace to mild mitral regurgitation. The tricuspid valve is normal in structure. Mild tricuspid regurgitation. PAP is estimated at 47 mmHg. The pulmonary valve is normal in structure. There is no pericardial effusion. <ELECTRONICALLY SIGNED> By: Angel Porter MD 11/14/19 1543 1543 1543 Angel Porter MD /INF
[2019-11-14 17:32] VITALS: BP 144/74
[2019-11-14 19:37] VITALS: BP 129/69
[2019-11-15 00:12] VITALS: BP 123/73
--- NOTE | 2019-11-15 03:05 | NUR ---
PATIENT TRANSFERED FROM 3W. PATIENT IS AOX4 MAKES NEEDS KNOWN. PATIENT IS ON 2L NO SOA OR DISTRESS NOTED THIS SHIFT. PAIN CONTROLLED THIS SHIFT. PATIENT IN BED ASLEEP AT THIS TIME BREATHING REGULAR AND UNLABOURED.
[2019-11-15 04:07] LABS: GLYCOHEMOGLOBIN (HGB A1C) 5.8 % (4.8-5.6)
[2019-11-15 06:57] VITALS: BP 146/75
[2019-11-15 15:37] VITALS: BP 127/68
--- NOTE | 2019-11-15 18:31 | NUR ---
PT IS AOX4, VSS, GENERALIZED PAIN CONTROLLED WITH ORAL ANALGESIC. PT IS UP AD NGA IN ROOM. NO BM TODAY, TOLERATING DIET WELL WITHOUT N/V. D/C GUICHO, BRIEF ON. WILL MONITOR FOR URINATE OUTPUT. NURSE EDUCATED PT URINE COULD TAKE 1-2 HOURS. PT ENCOURGAGE TO DRINK FLUIDS. CALL LIGHT IN REACH, WILL CONTINUE TO MONITOR.
[2019-11-15 19:26] VITALS: BP 126/65
--- NOTE | 2019-11-16 05:46 | NUR ---
RECIEVED CARE OF THIS PATIENT AT 1900. PATIENT ALERT AND ORIENTED X4. UP WITH SBA. C/O PAIN, MED GIVEN. PATIENT HAD CONTINUES COUGH, WAS CALLED AND AN ORDER WAS RECIEVED AND MED GIVEN. PATIENT HAS RENETTA DL PICC. GUICHO WAS DC'D AT 1800. HAS VOIDED X2 SINCE. SLEPT OFF AND ON DURING NIGHT.
[2019-11-16 07:13] VITALS: BP 128/66
--- NOTE | 2019-11-16 13:41 | NUR ---
PHYSISICAN INDICATED THAT PT IS PROGRESSING TOWARD GOAL OF DC. HE INDICATED THAT PT WILL LIKELY BE BEDICALLY STABLE TO DC HOME TOMORROW FRIDAY WITH HH SERVICES. CM SPOKE WITH PT AND SHE INDICATED SHE IS LEARLY OF HAVING HH COME INTO THE HOME DURING COVID CRISIS. SHE INDICATED SHE WOULD LIKE TO THINK ABOUT IT AND LET CM KNOW. PT INDICATED SHE WAS HAVING TORUBLE PAYING FOR HER SYMBICORT INHALER FOR HOME USE. CM FOUND COUPON CARD AND FAXED IT TO THE UNIT FOR THEM TO PROVIDE TO PT. PT IS ON ROOM AIR NOW. CM TO FOLLOW INDICATED WITH DC PLANNING.
[2019-11-16 16:51] VITALS: BP 114/64
[2019-11-16 19:29] VITALS: BP 116/48
--- NOTE | 2019-11-16 19:31 | NUR ---
Assumed pt care at 7am.Assessment completed.vss.Pt has coupy cough at allimes. C/o neck and shoulders pain related to constant cough.Tessalom perle and oxy given with relief.Dr Moore and Dickson here,order noted.Pt will be dc home in am.Report off to bree miller.
--- NOTE | 2019-11-17 04:57 | NUR ---
ASSUMED CARE OF PT AT 1900HRS. PT AOX4 AND LETS NEEDS BE KNOWN. PT HAS COURSE LUNGS. PT REPORTED PAIN AND WAS TREATED WITH PRN PAIN MEDS. PT STILL HAS A COUGH. PRN MEDS GIVEN. RENETTA PICC LINE IN PLACE AND DRAWS BLOOD WELL. PT WAS ABLE TO GET COMFORTABLE AND SLEEP PART OF THE SHIFT. VSS AND NO S/S OF ACUTE DISTRESS. WILL CONTINUE TO MONITOR.
[2019-11-17 05:33] LABS: ALBUMIN 2.7 g/dL (3.4-5.0); CALCIUM 7.9 mg/dL (8.5-10.1); CREATININE 0.8 mg/dL (0.6-1.0); POTASSIUM 3.7 mmol/L (3.5-5.1); TOTAL BILIRUBIN 0.5 mg/dL (0.2-1.0); TOTAL PROTEIN 6.3 g/dL (6.4-8.2)
[2019-11-17 05:35] LABS: HEMOGLOBIN 7.9 gm/dL (12.0-15.0); MCH 20.8 pg (26.0-34.0); MCHC 30.4 g/dL (28.0-37.0); MCV 68.5 fL (80.0-100.0); PLATELET COUNT 345 thou/uL (150-400); RBC 3.79 mil/uL (4.20-5.00); RDW 19.4 % (10.5-14.5); WBC 8.3 thou/uL (4.0-11.0)
[2019-11-17 07:09] VITALS: BP 126/73
[2019-11-17] MEDS ORDERED: LINEZOLID600 MG PO (07:42)
[2019-11-17] MEDS ORDERED: PREDNISONE 20 M20 M1 PO (07:43)
[2019-11-17] MEDS ORDERED: TESSALON PERLE100 MG PO (07:44)
[2019-11-17] MEDS ORDERED: SYMBICORT160 MCG/4. INH (07:47)
[2019-11-17 11:40] LABS: ABSOLUTE NEUTROPHILS 6.1 thou/uL (1.4-8.2); ANISOCYTOSIS 2+; HYPOCHROMASIA 3+; MICROCYTES 2+; NUCLEATED RBCS 1 /100WBC
[2019-11-17 11:41] LABS: OVALOCYTES FEW
--- NOTE | 2019-11-17 13:32 | NUR ---
Assumed pt care at 7AM.Assessment completed.vss.Pt reported back and neck pain.Am meds given including pain med with relief.Dr Moore here,dc order noted.Pt reported that her ride will come around 1530 to 1700.Dc summary completed and reviewed with pt.Rx and dc summary will be given to pt prior to dc home. Will continue to monitor.
--- NOTE | 2019-11-17 14:19 | NUR ---
CARE TEAM INDICATED THAT PT IS MEDICALLY STABLE TO DC HOME THIS DAY WITH NO NEEDS. PT IS TO DC HOME TO SELF CARE THIS DAY. NO OTHER CM INTERVENTION INDICATED. CASE CLOSED.
[2019-11-17 14:53] VITALS: BP 117/60
[2019-11-17 15:29] VITALS: BP 117/60
[2019-11-17 16:26] VITALS: BP 117/60
[2019-11-17 16:30] VITALS: BP 117/60
--- NOTE | 2019-11-17 16:40 | NUR ---
FAXED REFERRAL TO [facility] SPOKE WITH [facility] IN INTAKE THEY HAVE HAD PT ON SERVICE WITH THEM IN THE PAST AND WILL ACCEPT AT DC. PT TO DC HOME TODAY PLEASE FAX UPDATED DC ORDERS/SUMMARY TO [facility] FAX:[phone].
[2019-11-17 17:02] VITALS: BP 117/60
== END 2019-11-17 17:30 | disposition home health service (06) | DRG 871 ==
LOC: ER 22:56 → EROBS 11-10 01:45 → ICU 11-10 01:45 → 3W 11-10 01:45 → ICU 11-11 01:04 → 3W 11-12 14:44 → 4W 11-14 20:52
PROVIDERS: Emergency Medicine; Internal Medicine; Internal Medicine Pulmonary Disease; Pediatrics; ADMIT Family Medicine
PROC: 02HV33Z Insertion of Infusion Device into Superior Vena Cava, Percutaneous Approach (ICD-10-PCS; principal; 2019-11-11)
DX: A41.9 Sepsis, unspecified organism (principal); J96.01 Acute respiratory failure with hypoxia; J96.02 Acute respiratory failure with hypercapnia; J12.9 Viral pneumonia, unspecified; L03.115 Cellulitis of right lower limb; F11.20 Opioid dependence, uncomplicated; N17.9 Acute kidney failure, unspecified; K44.9 Diaphragmatic hernia without obstruction or gangrene; F32.9 Major depressive disorder, single episode, unspecified; M54.9 Dorsalgia, unspecified; F41.9 Anxiety disorder, unspecified; Z20.828 Contact with and (suspected) exposure to other viral communicable diseases; K21.9 Gastro-esophageal reflux disease without esophagitis; R73.9 Hyperglycemia, unspecified; G89.4 Chronic pain syndrome; D64.9 Anemia, unspecified; I10 Essential (primary) hypertension; J45.909 Unspecified asthma, uncomplicated; Z94.7 Corneal transplant status; Z90.49 Acquired absence of other specified parts of digestive tract; Z86.14 Personal history of Methicillin resistant Staphylococcus aureus infection; Z86.711 Personal history of pulmonary embolism; Z91.041 Radiographic dye allergy status; Z79.01 Long term (current) use of anticoagulants; Z87.891 Personal history of nicotine dependence; Z88.1 Allergy status to other antibiotic agents
CPT/HCPCS: 10047; 10078; 10879

== ENCOUNTER 2019-12-22 15:29 | Emergency (ER) | payer OTHER ==
[~2019-12-22] VITALS: Ht 162.6 cm; Wt 105.7 kg
[~2019-12-22 15:29] MED LIST changes: +LINEZOLID600 MG PO; +PREDNISONE 20 M20 M1 PO; +RESTORIL15 M1 PO
[2019-12-22 16:49] LABS: HEMATOCRIT 28.8 % (37.0-47.0); HEMOGLOBIN 8.9 gm/dL (12.0-15.0); MCH 20.6 pg (26.0-34.0); MCHC 30.9 g/dL (28.0-37.0); MCV 66.7 fL (80.0-100.0); PLATELET COUNT 421 thou/uL (150-400); RBC 4.32 mil/uL (4.20-5.00); RDW 20.2 % (10.5-14.5); WBC 17.8 thou/uL (4.0-11.0)
[2019-12-22 16:56] LABS: CALCIUM 9.1 mg/dL (8.5-10.1); CREATININE 1.1 mg/dL (0.6-1.0); POTASSIUM 3.7 mmol/L (3.5-5.1)
[2019-12-22 17:17] LABS: ABSOLUTE NEUTROPHILS 14.8 thou/uL (1.4-8.2); ANISOCYTOSIS 2+; HYPOCHROMASIA 2+; MICROCYTES 2+; POLYCHROMASIA OCCASIONAL
[2019-12-22] MEDS ORDERED: DOXYCYCLINE 10100 MG PO (17:34)
[2019-12-22 17:59] VITALS: BP 109/58
--- NOTE | 2019-12-23 07:43 | EKG ---
[facility] [place] [address] ELECTROCARDIOGRAM REPORT Name: DOMENIC MORA [id number] Admission: 12/22/19 Attend Phys: Discharge: 12/22/19 Date of : 52 Report #: [id number] THIS REPORT FOR: cc: Eliu Moore MD, Neal A. 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 Customs: cj : 1950 Requested By: Gregory Chavez Order Number: [id number] MD: Octavio Chavez Measurements Intervals [place] Rate: 83 P: 25 PA: 147 QRS: -13 QRSD: 88 T: 9 QT: 388 QTc: 456 Interpretive Statements Sinus rhythm Atrial premature complex Probable left atrial enlargement Left ventricular hypertrophy Compared to ECG 08/27/2019 15:16:00 No significant change was found Electronically Signed On 12-23-2019 7:43:21 CDT by Octavio Chavez [email or web address] <ELECTRONICALLY SIGNED> By: Octavio Chavez MD, [facility] 12/23/19 0743 1633 1633 Octavio Chavez MD, [facility] /EPI
== END 2019-12-22 17:59 | disposition home or self-care (01) ==
LOC: ER 15:29
PROVIDERS: Emergency Medicine
DX: J18.9 Pneumonia, unspecified organism (principal); Z90.49 Acquired absence of other specified parts of digestive tract; Z79.899 Other long term (current) drug therapy; Z86.2 Personal history of diseases of the blood and blood-forming organs and certain disorders involving the immune mechanism; Z88.1 Allergy status to other antibiotic agents; Z91.041 Radiographic dye allergy status; Z20.828 Contact with and (suspected) exposure to other viral communicable diseases

== ENCOUNTER → 2020-01-20 | Outpatient (CLI) | payer OTHER ==
[~2020-01-20] VITALS: Ht 162.6 cm; Wt 105.7 kg
[2020-01-20 12:37] VITALS: BP 117/65
[2020-01-20 13:55] VITALS: BP 118/63
--- NOTE | 2020-01-20 16:19 | NUR ---
IN FOR 1ST INJECTAFER INFUSION FOR IRON DEFICIENCY ANEMIA. ADMISSION HISTORY AND ASSESSMENT COMPLETED. PATIENT WAS ABLE TO GIVE HISTORY. IV PLACED IN RIGHT WRIST AND INFUSED INJECTAFER OVER 30 MINUTES. TOLERATED WELL. OBSERVED FOR 30 MINUTES. POST BP 118/63. REMOVED IV AND DISMISSED IN STABLE CONDITION.
== END ==
LOC: OPONC 09:20
PROVIDERS: ATTEND Family Medicine
DX: D50.9 Iron deficiency anemia, unspecified (principal)
CPT/HCPCS: 95000

== ENCOUNTER → 2020-01-27 | Outpatient (CLI) | payer OTHER ==
[2020-01-27 12:00] VITALS: BP 101/53
[2020-01-27 13:40] VITALS: BP 102/53
--- NOTE | 2020-01-27 15:17 | NUR ---
IN FOR 2ND INJECTAFER INFUSION. PATIENT STATED HAD NO SIDE EFFECTS FROM 1ST INFUSION LAST WEEK. ALSO STATED NO IMPROVEMENT IN HER FATIGUE. PLACED IV IN LEFT ARM. INFUSED INJECTAFER OVER 30 MINUTES AND TOLERATED WELL. OBSERVED FOR 30 MINUTES. POST BP GOOD. REMOVED IV AND DISMISSED IN STABLE CONDITION. INSTRUCTED TO FOLLOW UP WITH DR. LAZCANO REGARDING WHEN HER IRON LEVELS NEED TO BE CHECKED AGAIN.
== END ==
LOC: OPONC 08:53
PROVIDERS: ATTEND Family Medicine
DX: D50.9 Iron deficiency anemia, unspecified (principal); K90.49 Malabsorption due to intolerance, not elsewhere classified
CPT/HCPCS: 95000

== ENCOUNTER → 2020-02-14 | Outpatient (CLI) | payer OTHER | LOC: SJCVC 10:09 | PROVIDERS: ATTEND Internal Medicine | DX: I49.1 Atrial premature depolarization (principal); E78.5 Hyperlipidemia, unspecified; I27.20 Pulmonary hypertension, unspecified; Z78.9 Other specified health status; Z79.899 Other long term (current) drug therapy ==

== ENCOUNTER → 2020-04-13 | Outpatient (CLI) | payer OTHER | LOC: SJCVC 10:06 | PROVIDERS: ATTEND Internal Medicine | DX: E78.00 Pure hypercholesterolemia, unspecified (principal); I50.32 Chronic diastolic (congestive) heart failure; Z68.41 Body mass index [BMI] 40.0-44.9, adult; Z79.899 Other long term (current) drug therapy ==

== ENCOUNTER 2020-09-18 08:57 | Inpatient (IN) | payer OTHER ==
[~2020-09-18] VITALS: Ht 165.1 cm; Wt 109.8 kg
[2020-09-18 09:05] VITALS: BP 126/73
[2020-09-18] MEDS ORDERED: BREZTRI AEROS10.7 GM INH (09:11)
[2020-09-18] MEDS ORDERED: PROTONIX40 M2 PO (09:13)
[2020-09-18 11:01] LABS: ABSOLUTE NEUTROPHILS 4.2 thou/uL (1.4-8.2); BASOPHILS 0.8 % (0.0-2.0); EOSINOPHILS 3.8 % (0.0-3.0); HEMATOCRIT 44.2 % (37.0-47.0); HEMOGLOBIN 14.5 gm/dL (12.0-15.0); LYMPHOCYTES 25.7 % (24.0-44.0); MCH 30.1 pg (26.0-34.0); MCHC 32.8 g/dL (28.0-37.0); MCV 91.8 fL (80.0-100.0); MONOCYTES 7.6 % (1.0-8.0); PLATELET COUNT 221 thou/uL (150-400); POLYS 62.1 % (36.0-66.0); RBC 4.82 mil/uL (4.20-5.00); RDW 14.7 % (10.5-14.5); WBC 6.8 thou/uL (4.0-11.0)
[2020-09-18 11:17] LABS: ANION GAP 9 mmol/L (7-16); BUN 12 mg/dL (7-18); CALCIUM 9.2 mg/dL (8.5-10.1); CHLORIDE 107 mmol/L (98-107); CO2 26 mmol/L (21-32); GLUCOSE 91 mg/dL (74-106); POTASSIUM 3.6 mmol/L (3.5-5.1); SODIUM 142 mmol/L (136-145)
[2020-09-18 11:22] LABS: ALBUMIN 3.3 g/dL (3.4-5.0); SGOT 17 U/L (15-37); SGPT 18 U/L (14-59); TOTAL BILIRUBIN 0.7 mg/dL (0.2-1.0); TOTAL PROTEIN 7.6 g/dL (6.4-8.2); TROPONIN-I <0.06 ng/mL (<0.06)
[2020-09-18 11:42] LABS: URINE BILIRUBIN NEGATIVE (Negative); URINE BLOOD NEGATIVE (Negative); URINE CLARITY CLEAR; URINE COLOR YELLOW; URINE GLUCOSE-RANDOM* NEGATIVE (Negative); URINE KETONES NEGATIVE (Negative); URINE LEUKOCYTES-REFLEX NEGATIVE (Negative); URINE NITRITE-REFLEX NEGATIVE (Negative); URINE PROTEIN (DIPSTICK) NEGATIVE (Negative); URINE UROBILINOGEN 0.2 E.U./dl (0.2-1.0)
[2020-09-18 12:34] VITALS: BP 119/80
[2020-09-18 13:21] VITALS: BP 148/82
[2020-09-18 16:27] VITALS: BP 104/55
[2020-09-18 20:06] VITALS: BP 96/58
[2020-09-19 04:20] VITALS: BP 135/86
--- NOTE | 2020-09-19 07:01 | EKG ---
[place] [address] [address] [facility] [place] [address] ELECTROCARDIOGRAM REPORT Name: MORGANOMARDOMENIC K Room #: 356-P ADM IN M.R.#: [id number] Admission: 09/18/20 Attend Phys: Eliu Moore MD Discharge: Date of : 52 Report #: [id number] [facility] ED Test Date: 2020-09-18 Test Time: 09:45:44 Pat Name: DOMENIC MORA Department: Room: 356 Gender: F Director Internal Audit: bree : 1950 Requested By: Alek Merino Order Number: [id number] MD: Judd Hartley Measurements Intervals [place] Rate: 80 P: 22 WI: 159 QRS: -19 QRSD: 88 T: -3 QT: 378 QTc: 436 Interpretive Statements Sinus rhythm Multiple premature complexes, vent & supraven Probable left atrial enlargement Left ventricular hypertrophy Compared to ECG 12/22/2019 16:33:33 Atrial premature complex(es) no longer present Electronically Signed On 09-19-2020 7:01:28 CDT by Judd Hartley [email or web address] <ELECTRONICALLY SIGNED> By: Judd Hartley MD, [facility] 09/19/20 0701 0945 Judd Hartley MD, [facility] /[facility]
[2020-09-19 07:30] VITALS: BP 120/70
--- NOTE | 2020-09-19 16:10 | NUR ---
INITIAL ASSESSMENT: SW reviewed chart and spoke with nursing. Pt was admitted from home due to dyspnea. Pt had negative COVID test on 09/18. Pt is on IV abx and IV steroids. Discharge home is anticipated in 1-2 days. SW met with pt at bedside. Introduced role of SW. Pt is alert/orientated x 4. Pt reports she lives at home with her ex- and son. Prior to admission, pt was independent with ADLs. Pt has used [facility] in the past. No hx of post-acute placement. Pt's PCP is Dr. Moore. Plan is for pt to discharge home when medically stable. SW is following to assist as needed with discharge planning.
[2020-09-19 19:50] VITALS: BP 127/54
[2020-09-20 04:44] VITALS: BP 132/78
[2020-09-20 08:00] VITALS: BP 105/50
--- NOTE | 2020-09-20 11:54 | NUR ---
CARE ASSUMD AT 0700, PT ALERT AND ORIENTED X4, DENIES CHEST OAIN, NAUSEA AND VOMITTING. PT O2 SAT IN THE 80'S, OXYGEN INCREASED TO 3L. COUGH MEDICINE GIVEN FOR FOR. UP AD NGA. DENIES ANY NEEDS AT MOMENT, WILL CONTINUE TO MONITOR.
--- NOTE | 2020-09-20 15:18 | NUR ---
SW reviewed chart and spoke with nursing and attending physician. Pt is progressing towards goals for discharge. Discharge home is anticipated in 1-2 days. SW met with pt in the hallway, as she was ambulating independently with a walker. SW discussed discharge needs. Pt states she does not think she needs HH, but is agreeable with HH if it is recommended by the physician. Options discussed. No preference voiced of a HH provider. Plan is for pt to discharge home when medically stable. DONTAE is following to assist as needed with discharge planning.
[2020-09-20 15:32] VITALS: BP 109/60
[2020-09-20 19:19] VITALS: BP 123/74
[2020-09-21 05:00] VITALS: BP 146/88
--- NOTE | 2020-09-21 06:45 | NUR ---
PT MAKING SLOW PROGRESS TOWARDS GOALS. PT INITIALLY ON O2 AT 2L PER NC. REPORTEDLY PT USING O2 NEEDED FOR SOA. LUNGS COARSE THROUGHOUT. COUGH REPORTEDLY LESS HARSH THAN THE DAY BEFORE. CONTINUE MONITOR.
[2020-09-21 07:17] VITALS: BP 144/83
--- NOTE | 2020-09-21 07:47 | NUR ---
ASSESS PT WITH DR. YORK PT WILL DC TOMORROW.
--- NOTE | 2020-09-21 15:13 | NUR ---
Tenative plan for discharge in am. Patient may need home oxygen, sat/ex ordered.
[2020-09-21 16:13] VITALS: BP 130/76
[2020-09-21 20:44] VITALS: BP 131/77
[2020-09-22 04:15] VITALS: BP 174/104
[2020-09-22 05:36] VITALS: BP 149/88
--- NOTE | 2020-09-22 06:27 | NUR ---
VSS OVERNIGHT UNTIL ABOUT 0400. DURING MORNING VITALS BP ELEVATED AND PT STATES SHE IS FEELING DIZZY. BP WAS 174/104 AND HR 68. GAVE COUGH MED, PO PAIN MED, AND CLONAZEPAM . RECHECKED AT 5 BP WAS 149/88 AND HR 64. PT STILL SAYING SHE IS DIZZY. STATES SHE HAS THE FEELING WHEN BP FLUCTUATES. WILL CONTINUE TO MONITOR.
[2020-09-22 07:57] VITALS: BP 155/93
--- NOTE | 2020-09-22 10:57 | NUR ---
DONTAE reviewed chart and spoke with nursing and attending physician. Pt is progressing towards goals for discharge. Discharge home is anticipated for tomorrow. Pt is currently on 4L of O2, IV abx and IV steroids. Rest/exercise oximetry completed yesterday. Pt does not qualify for home O2. DONTAE met with pt at bedside to discuss discharge plan. Pt states she already has home O2 equipment at home. Pt is unsure name of DME company and states that she can all the O2 company when she gets home if she needs more tanks. SW offered to arrange HH. Pt declines offer. DONTAE updated attending physician. Pt may need another rest/exercise oximetry prior to discharge. Pt states she will have transportation home. No SW needs identified at this time, but is available to assist should needs arise.
[2020-09-22] MEDS ORDERED: PREDNISONE 10 M10 MG PO (15:37)
[2020-09-22] MEDS ORDERED: CEFDINIR300 MG PO (15:38)
[2020-09-22 16:09] VITALS: BP 118/78
[2020-09-22 19:27] VITALS: BP 144/88
[2020-09-23 04:31] VITALS: BP 170/96
[2020-09-23] MEDS ORDERED: PROMETHAZINE-C473 ML PO (06:32)
--- NOTE | 2020-09-23 07:55 | NUR ---
Patient making progress towards outcome goals. Vital signs and rhythm stable. PRN medications for pain, cough and sleep with relief. Up adlib without difficulty. Gait steady. Oxygenation optimal with 4LNC. Calls out apporiately for needs.
[2020-09-23 14:57] VITALS: BP 170/96
--- NOTE | 2020-09-23 15:25 | NUR ---
assumed care of pt at 0700. pt aox4 in no acute distress. exercise oximetry test indicates patient not requiring O2 at home. ok for discharge per physician. pt agreeable with discharge instructions. waiting on transport.
== END 2020-09-23 16:03 | disposition home or self-care (01) | DRG 871 ==
LOC: ER 08:57 → EROBS 12:10 → 3W 12:10
PROVIDERS: Emergency Medicine; ADMIT Family Medicine; ATTEND Family Medicine
DX: A41.9 Sepsis, unspecified organism (principal); J18.9 Pneumonia, unspecified organism; J44.1 Chronic obstructive pulmonary disease with (acute) exacerbation; J44.0 Chronic obstructive pulmonary disease with (acute) lower respiratory infection; M54.9 Dorsalgia, unspecified; F41.9 Anxiety disorder, unspecified; F32.9 Major depressive disorder, single episode, unspecified; G89.4 Chronic pain syndrome; Z20.822 Contact with and (suspected) exposure to COVID-19; Z90.49 Acquired absence of other specified parts of digestive tract; Z98.1 Arthrodesis status; Z87.01 Personal history of pneumonia (recurrent); Z79.01 Long term (current) use of anticoagulants; Z79.899 Other long term (current) drug therapy; Z88.1 Allergy status to other antibiotic agents; Z91.041 Radiographic dye allergy status
CPT/HCPCS: 10879

== ENCOUNTER → 2020-12-13 | Outpatient (CLI) | payer OTHER ==
[~2020-12-13] MED LIST changes: +BREZTRI AEROS10.7 GM INH; +PROMETHAZINE-C473 ML PO; +PROTONIX40 M2 PO
== END ==
LOC: SJCVC 09:02
PROVIDERS: ATTEND Internal Medicine
DX: E78.00 Pure hypercholesterolemia, unspecified (principal); G47.30 Sleep apnea, unspecified; J96.90 Respiratory failure, unspecified, unspecified whether with hypoxia or hypercapnia; Z86.718 Personal history of other venous thrombosis and embolism; G89.29 Other chronic pain; Z68.44 Body mass index [BMI] 60.0-69.9, adult; Z79.899 Other long term (current) drug therapy; I50.32 Chronic diastolic (congestive) heart failure

== ENCOUNTER 2020-12-17 20:07 | Inpatient (IN) | payer OTHER ==
[~2020-12-17] VITALS: Ht 165.1 cm; Wt 106.6 kg
[2020-12-17 20:10] VITALS: BP 107/74
[2020-12-17 20:30] LABS: ABSOLUTE NEUTROPHILS 9.1 thou/uL (1.4-8.2); BASOPHILS 0.6 % (0.0-2.0); EOSINOPHILS 3.1 % (0.0-3.0); HEMATOCRIT 43.6 % (37.0-47.0); HEMOGLOBIN 14.6 gm/dL (12.0-15.0); MCH 30.5 pg (26.0-34.0); MCHC 33.4 g/dL (28.0-37.0); MCV 91.3 fL (80.0-100.0); MONOCYTES 6.1 % (1.0-8.0); PLATELET COUNT 297 thou/uL (150-400); POLYS 71.2 % (36.0-66.0); RBC 4.78 mil/uL (4.20-5.00); RDW 15.5 % (10.5-14.5); WBC 12.8 thou/uL (4.0-11.0)
[2020-12-17 20:36] LABS: CREATININE 1.4 mg/dL (0.6-1.0); POTASSIUM 3.9 mmol/L (3.5-5.1)
[2020-12-17 20:48] LABS: ALBUMIN 3.6 g/dL (3.4-5.0); TOTAL BILIRUBIN 0.7 mg/dL (0.2-1.0); TOTAL PROTEIN 7.7 g/dL (6.4-8.2)
[2020-12-17 21:06] LABS: INR 0.95; PROTIME 10.4 Seconds (10.5-12.1)
[2020-12-17] MEDS ORDERED: CRESTOR40 MG PO (21:07)
[2020-12-17 21:18] LABS: APTT < 20.0 Seconds (24.5-32.8)
[2020-12-17 23:42] VITALS: BP 140/75
[2020-12-18 00:02] VITALS: BP 135/88
[2020-12-18 00:36] VITALS: BP 129/74
--- NOTE | 2020-12-18 03:33 | NUR ---
ASSESSMENT: PT REMAIN ALERT AND ORIENT TIMES FOUR. UP WITH SBA TO BR. VSS, AFEBRILE. REQUESTING PAIN MEDICATIONS,. DR. LAZCANO WAS CALLED FOR ORDERS FOR PAIN MEDS, CLONZEPAM AND GABAPENTIN. RIGHT LE NOTED TO BE SLIGHTLY RED, CELLULITIS HX. ELIQUIS HELD FOR NOW. ASPEN COLLAR INTACT. RIGHT HAND IV INTACT WITH ONE 500 ML BAG OF NS FININSHING UP FROM ED. WILL CONTINUE TO MONITOR.
[2020-12-18 07:15] VITALS: BP 105/66
--- NOTE | 2020-12-18 09:32 | EKG ---
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 : 1950 Requested By: Nahun Cohen Order Number: [id number] MD: Judd Hartley Measurements Intervals [place] Rate: 91 P: 10 MD: 160 QRS: -19 QRSD: 80 T: 4 QT: 393 QTc: 484 Interpretive Statements Sinus rhythm LVH with secondary repolarization abnormality Inferior infarct, old Compared to ECG 09/18/2020 09:45:44 Early repolarization now present Myocardial infarct finding now present Electronically Signed On 12-18-2020 9:32:28 CDT by Judd Hartley [email or web address] <ELECTRONICALLY SIGNED> By: Judd Hartley MD, [facility] 12/18/20 0932 2030 2030 Judd Hartley MD, [facility] /EPI
[2020-12-18 13:57] LABS: URINE BLOOD NEGATIVE (Negative); URINE CLARITY CLEAR; URINE GLUCOSE-RANDOM* NEGATIVE (Negative); URINE KETONES TRACE (Negative); URINE LEUKOCYTES-REFLEX NEGATIVE (Negative); URINE NITRITE-REFLEX NEGATIVE (Negative); URINE PROTEIN (DIPSTICK) TRACE (Negative); URINE SPECIFIC GRAVITY >= 1.030 (1.005-1.035); URINE UROBILINOGEN 0.2 E.U./dl (0.2-1.0)
[2020-12-18 14:00] LABS: ICTOTEST (BILI CONFIRMATORY) Negative (Negative); URINE BILIRUBIN NEGATIVE (Negative); URINE COLOR AMBER
[2020-12-18 14:40] LABS: MUCUS >6 Heavy strn/LPF (None Seen); SQUAMOUS 0-3 Few /LPF (0-3)
[2020-12-18 14:41] LABS: CALCIUM OXALATE >10 Many /LPF (None Seen)
[2020-12-18 14:42] LABS: HYALINE CASTS 4-10 Moderate /LPF (None Seen)
[2020-12-18 14:44] LABS: URINE RBC 3-10 Few /HPF (NONE SEEN); URINE WBC-REFLEX 0-5 Rare /HPF (0-5)
[2020-12-18 15:55] VITALS: BP 124/67
--- NOTE | 2020-12-18 17:38 | NUR ---
PT REPORT ONLY URINATED ONCE SINCE HOSPITALIZED LAST NIGHT: 200ML. URINE CULTURE SENT. BLADDER SCAN PT AT 17:15: SHOWING 34ML. TEXTED DR. LAZCANO FOR FUTHER INSTRUCTION. WILL KEEP MONITOR PT'S I&O AND FOLLOW ORDERS.
[2020-12-18 19:50] VITALS: BP 110/86
[2020-12-19 08:40] VITALS: BP 112/67
[2020-12-19 16:06] VITALS: BP 112/67
--- NOTE | 2020-12-19 16:13 | NUR ---
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 CM REVIEWED CHART AND SPOKE WITH CARE TEAM. CM MET WITH PT AT BEDSIDE THIS DAY PT APPEARED TO BE A&O X4. CM ROLE INTRODUCED. PT INDICATED SHE RESIDES IN A HOUSE WITH HER EX AND SON STITCH RUBBER. SHE INDICATED SHE HAD BEEN INDEPDENT WITH GAIT AND ADLS STITCH RUBBER. DR. LAZCANO INDICATED THAT PT WAS AWAITING [facility] FOR POSSIBLE DC. NEURO SAW AND WELL TRAUMA AND THEY INDICATED THAT PT IS STABLE TO DC HOME THIS DAY. PT IS TO DC HOME TO SELF CARE THI DAY. CASE CLOSED.
== END 2020-12-19 17:16 | disposition home or self-care (01) | DRG 552 ==
LOC: ER 20:07 → EROBS 23:04 → 4W 23:04
PROVIDERS: Physician Assistant; ADMIT Surgery; ATTEND Surgery
DX: S12.201A Unspecified nondisplaced fracture of third cervical vertebra, initial encounter for closed fracture (principal); G89.29 Other chronic pain; M54.9 Dorsalgia, unspecified; F32.9 Major depressive disorder, single episode, unspecified; Z60.2 Problems related to living alone; F41.9 Anxiety disorder, unspecified; M54.2 Cervicalgia; S09.90XA Unspecified injury of head, initial encounter; S12.200A Unspecified displaced fracture of third cervical vertebra, initial encounter for closed fracture; W07.XXXA Fall from chair, initial encounter; Y93.89 Activity, other specified; Z94.7 Corneal transplant status; Z90.49 Acquired absence of other specified parts of digestive tract; Z86.14 Personal history of Methicillin resistant Staphylococcus aureus infection; Z86.711 Personal history of pulmonary embolism; Z88.1 Allergy status to other antibiotic agents; Z91.041 Radiographic dye allergy status; Z79.01 Long term (current) use of anticoagulants; Z93.1 Gastrostomy status; Y92.89 Other specified places as the place of occurrence of the external cause; Y99.8 Other external cause status; Z86.718 Personal history of other venous thrombosis and embolism
CPT/HCPCS: 10040

== ENCOUNTER 2021-01-25 23:56 | Emergency (ER) | payer OTHER ==
[~2021-01-25] VITALS: Ht 165.1 cm; Wt 107.0 kg
[~2021-01-25 23:56] MED LIST changes: +CRESTOR40 MG PO
[2021-01-26 01:28] VITALS: BP 100/69
== END 2021-01-26 01:30 | disposition home or self-care (01) ==
LOC: ER 23:56
DX: S83.91XA Sprain of unspecified site of right knee, initial encounter (principal); S16.1XXA Strain of muscle, fascia and tendon at neck level, initial encounter; S09.90XA Unspecified injury of head, initial encounter; F32.9 Major depressive disorder, single episode, unspecified; F41.9 Anxiety disorder, unspecified; Z79.899 Other long term (current) drug therapy; Z90.49 Acquired absence of other specified parts of digestive tract; Z88.1 Allergy status to other antibiotic agents; W19.XXXA Unspecified fall, initial encounter; Y93.89 Activity, other specified; Y92.89 Other specified places as the place of occurrence of the external cause; Y99.8 Other external cause status

== ENCOUNTER → 2021-03-13 | Outpatient (CLI) | payer OTHER | LOC: SJCVC 10:42 | PROVIDERS: ATTEND Internal Medicine | DX: R94.31 Abnormal electrocardiogram [ECG] [EKG] (principal); I11.9 Hypertensive heart disease without heart failure; R06.00 Dyspnea, unspecified; I27.20 Pulmonary hypertension, unspecified; I82.403 Acute embolism and thrombosis of unspecified deep veins of lower extremity, bilateral; R06.02 Shortness of breath; E78.5 Hyperlipidemia, unspecified; N17.9 Acute kidney failure, unspecified; D64.9 Anemia, unspecified; F41.9 Anxiety disorder, unspecified; L03.90 Cellulitis, unspecified; F32.9 Major depressive disorder, single episode, unspecified; J40 Bronchitis, not specified as acute or chronic; G89.29 Other chronic pain; M54.9 Dorsalgia, unspecified; I26.99 Other pulmonary embolism without acute cor pulmonale; A41.9 Sepsis, unspecified organism; Z79.899 Other long term (current) drug therapy; Z72.89 Other problems related to lifestyle; Z88.1 Allergy status to other antibiotic agents; Z88.8 Allergy status to other drugs, medicaments and biological substances ==